=== PATIENT | male | born 1960 | race Caucasian/White ===

== ENCOUNTER 2017-11-22 16:26 | Observation (INO) ==
[2017-11-22] MEDS ORDERED: Aspirin 81 MG TAB.CHEW PO ONE (16:43)
--- NOTE | 2017-11-22 16:46 | Emergency Department Note ---
Disposition Clinical Impression: History of coronary artery disease Chest pain Qualifiers: Chest pain type: unspecified Qualified Code(s): R07.9 - Chest pain, unspecified Disposition: Admitted As Inpatient Condition: Fair Referrals: Davian Nation MD [Primary Care Provider] - Time of Disposition: 17:59 Chest Pain HPI - General Stated Complaint: chest pain/SHAYNA Time Seen by Provider: 11/22/17 16:35 Source: patient Mode of arrival: ambulatory Limitations: no limitations Vital Signs Reviewed: Yes Nursing Notes Reviewed: Yes - History of Present Illness HPI Narrative: 57-year-old male with a history of hypertension and ACS status post stent placement at [facility] approximately a month ago presents for evaluation of chest pain. Patient describes anterior chest pressure on the left side that started approximately 9:30 this morning. Appear to have radiation on the left arm. Notes symptoms have improved since initial presentation. Patient does note the pain was worse with exertion while at work. Resolved with a stent at rest. Patient reports some diaphoresis but no nausea vomiting. Patient also notes some dyspnea mostly with exertion. No fevers or cough. Patient states he did not take his Plavix or aspirin earlier today. Reports that he had one stent placed at [facility] on 10/20/2017 of this year. States that he is willing for admission here with further evaluation. Patient also noted a history of hypertension prior to arrival. States symptoms felt similar to prior HI. - Related Data Home Medications Medication Instructions Recorded Confirmed Aspirin Enteric Coated [Aspirin EC] 81 mg PO DAILY 11/22/17 11/22/17 Atorvastatin Calcium [Lipitor] 80 mg PO HS 11/22/17 11/22/17 Clopidogrel [Plavix] 75 mg PO DAILY 11/22/17 11/22/17 Ergocalciferol (VITAMIN D2) 100,000 unit PO QWEEK 11/22/17 11/22/17 [Vitamin D2] Folic Acid [Folic Acid] 1 mg PO DAILY 11/22/17 11/22/17 Losartan Potassium [Cozaar] 50 mg PO DAILY 11/22/17 11/22/17 Methotrexate [Otrexup] 10 mg PO WE 11/22/17 11/22/17 Metoprolol [Lopressor] 25 mg PO DAILY 11/22/17 11/22/17 predniSONE [PredniSONE] 5 mg PO QID 11/22/17 11/22/17 Allergies Allergy/AdvReac Type Severity Reaction Status Date / Time No Known Allergies Allergy Verified 11/22/17 17:25 All systems ED: reviewed and negative except as stated. Constitutional: Denies: fever Cardiovascular: Reports: chest pain Respiratory: Reports: dyspnea. Denies: cough, sputum production Gastrointestinal: Denies: abdominal pain, nausea, vomiting Physical Exam - General Limitations: no limitations General appearance: alert, in no apparent distress, obese - Head Head exam: atraumatic, normocephalic, normal inspection - Eye Eye exam: Present: normal appearance, EOMI - ENT ENT exam: normal exam, mucous membranes moist - Neck Neck exam: Present: normal inspection - Chest Chest inspection: Present: normal inspection - Respiratory Respiratory exam: Present: normal lung sounds bilaterally. Absent: respiratory distress - Cardiovascular Cardiovascular exam: Present: regular rate, normal rhythm. Absent: systolic murmur - Abdominal Exam Abdominal exam: Present: soft, Non-Tender - Extremities Exam Extremities exam: Present: normal inspection. Absent: pedal edema - Expanded Lower Extremity Exam Neurovascular/Tendon exam: Present: normal capillary refill - Neurological Exam Neurological exam: Present: alert, oriented X3 - Skin Skin exam: Present: warm, dry, intact, normal color Course Course Narrative: Patient ambulated the treatment area. Patient does note worsening chest pain and has a history of cardiac disease. Patient will get repeat cardiopulmonary evaluation EKG, troponin and BNP. Patient will require admission for further evaluation of his ACS. Will attempt to gather records from a [facility] - Reevaluation(s) Reevaluation #1: Patient's pain resolved after 2 nitroglycerin. Time: 17:08 Reevaluation #2: Patient's repeat EKG shows sinus rhythm with left axis deviation. T-wave inversions in the 3 aVF and V1. No ST elevation. Nonspecific T-wave abnormalities. Time: 17:27 Reevaluation #3: Seen and examined. Patient states he is pain-free. Updated on plan of care. Patient will be admitted. Time: 17:48 Vital Signs Temperature 97.8 F 11/22/17 16:41 Pulse Rate 76 11/22/17 16:41 Respiratory Rate 20 11/22/17 16:41 Blood Pressure 133/94 11/22/17 16:41 O2 Sat by Pulse Oximetry 98 11/22/17 16:41 Temperature 97.8 F 11/22/17 16:41 Pulse Rate 74 11/22/17 17:48 Respiratory Rate 17 11/22/17 17:48 Blood Pressure 125/87 11/22/17 17:48 O2 Sat by Pulse Oximetry 97 11/22/17 17:48 Oxygen Delivery Oxygen Delivery Room Air Chest Pain - MDM Narrative Medical decision making narrative: Patient with recent heart attack over a month ago presents for evaluation of chest pain. Attempted to gather those records [facility] however there are not available currently for my evaluation. Patient chest pain was concerning history for ACS. Patient's chest pain resolved after 2 nitroglycerin. Received aspirin. Patient has no ischemic acute changes on her EKG. Patient's been resting comfortably in the ED. Given the patient's history of ACS as well as recent stent placement the patient will be admitted to hospital service for further evaluation and testing. Patient was not anticoagulated during the ED course with a negative troponin and no ischemic EKG changes. Patient's symptoms are not consistent with a pulmonary embolism, pericarditis, tamponade. Records were obtained from [facility] which showed severe stenosis greater than 99% of the mid RCA. Catheter report is placed on the patient's file. EF is 60%. Patient did not take any of his antiplatelet medications earlier today due to noncompliance and not able to get to the pharmacy. - Lab Data Lab results reviewed: Yes I reviewed the patient's lab results. Result diagrams: 11/22/17 16:53 11/22/17 16:53 Lab Results 11/22/17 11/22/17 11/22/17 Range/Units 16:43 16:43 16:53 WBC 6.7 (4.3-11.1) K/mcL RBC 4.20 (4.19-5.50) M/mcL Hgb 12.1 L (12.9-16.9) g/dL Hct 34.9 L (37.5-50.1) % MCV 83.1 (83.0-100.0) fL MCH 28.8 (28.0-33.3) pg MCHC 34.7 (31.6-35.5) g/dL RDW 13.8 (11.5-14.5) % Plt Count 306 (140-400) K/mcL MPV 8.8 L (9.4-12.4) fL Immature Gran % 0.5 (0-4) % Seg Neutrophils % 55.0 % Lymphocytes % 30.0 % Monocytes % 10.4 % Eosinophils % 3.0 % Basophils % 1.1 % Neutrophils # 3.7 (1.6-8.9) K/mcL Lymphocytes # 2.0 (0.6-4.6) K/mcL Monocytes # 0.7 (0.0-1.3) K/mcL Eosinophils # 0.2 (0.0-0.6) K/mcL Basophils # 0.1 (0.0-0.2) K/mcL PT 12.7 H (9.4-12.1) Seconds INR 1.1 Sodium (136-145) mEq/L Potassium (3.5-5.1) mEq/L Chloride (98-107) mEq/L Carbon Dioxide (23-29) mEq/L BUN (6-20) mg/dL Creatinine (0.70-1.30) mg/dL Est GFR ( Amer) (> 60) Est GFR (Non-Af Amer) (> 60) BUN/Creatinine Ratio (6-26) Glucose (70-105) mg/dL Calculated Osmolality (280-300) Calcium (8.6-10.3) mg/dL Troponin I (< 0.04) ng/mL B-Natriuretic Peptide 19 (Less than 100) pg/mL 11/22/17 Range/Units 16:53 WBC (4.3-11.1) K/mcL RBC (4.19-5.50) M/mcL Hgb (12.9-16.9) g/dL Hct (37.5-50.1) % MCV (83.0-100.0) fL MCH (28.0-33.3) pg MCHC (31.6-35.5) g/dL RDW (11.5-14.5) % Plt Count (140-400) K/mcL MPV (9.4-12.4) fL Immature Gran % (0-4) % Seg Neutrophils % % Lymphocytes % % Monocytes % % Eosinophils % % Basophils % % Neutrophils # (1.6-8.9) K/mcL Lymphocytes # (0.6-4.6) K/mcL Monocytes # (0.0-1.3) K/mcL Eosinophils # (0.0-0.6) K/mcL Basophils # (0.0-0.2) K/mcL PT (9.4-12.1) Seconds INR Sodium 139 (136-145) mEq/L Potassium 3.8 (3.5-5.1) mEq/L Chloride 108 H (98-107) mEq/L Carbon Dioxide 23 (23-29) mEq/L BUN 10 (6-20) mg/dL Creatinine 0.93 (0.70-1.30) mg/dL Est GFR ( Amer) > 60 (> 60) Est GFR (Non-Af Amer) > 60 (> 60) BUN/Creatinine Ratio 11 (6-26) Glucose 91 (70-105) mg/dL Calculated Osmolality 287 (280-300) Calcium 8.9 (8.6-10.3) mg/dL Troponin I < 0.03 (< 0.04) ng/mL B-Natriuretic Peptide (Less than 100) pg/mL - Radiology Data Radiology results reviewed: Yes I reviewed the patient's radiology results. Chest X-Ray 11/22/17 16:43 IMPRESSION: No acute findings. D/ / Jc Warren MD / Jc Warren MD Interpreting Provider: Jc Warren MD - EKG Data EKG attestation: Yes I reviewed and interpreted this EKG. EKG shows normal: sinus rhythm Rate: normal Rhythm: NSR [place]/QRS: normal T wave inversions noted in: III, aVF, v1 Interpretation: no acute changes, nonspecific ST-T wave changes Heart Score - Score History: Highly Suspicious EKG: Non Specific repolarisation Disturbance Age: 45-65 Risk Factors: Equal/Greater than 3 risk factor or history of atherosclerotic disease Troponin: Less than normal limit HEART Score Total: 6 S.B.A.R. - S.B.A.R. Situation: Demographics Background: Presenting Complaint Assessment: Vital Signs, Course and respsone to treatment, Patient/Family Expectation Recommendation: Barrier(s) to disposition, Recommendation based on pending studies, treatments, or consults S.B.A.R. Report Given to: Dr. Josh Reaves Repor Time: 17:59
[2017-11-22] MEDS: Nitroglycerin 0.4 MG TAB.SUBL SL ONE ×2 (16:53→17:03)
[2017-11-22 17:07] LABS: Basophils # 0.1 K/mcL (0.0-0.2); Basophils % 1.1 %; Eosinophils # 0.2 K/mcL (0.0-0.6); Hematocrit 34.9 % (37.5-50.1); Hemoglobin 12.1 g/dL (12.9-16.9); Immature Granulocytes % 0.5 % (0-4); Mean Corpuscular HGB Conc 34.7 g/dL (31.6-35.5); Mean Corpuscular Hemoglobin 28.8 pg (28.0-33.3); Mean Corpuscular Volume 83.1 fL (83.0-100.0); Mean Platelet Volume 8.8 fL (9.4-12.4); Monocytes # 0.7 K/mcL (0.0-1.3); Monocytes % 10.4 %; Neutrophils # 3.7 K/mcL (1.6-8.9); Platelet Count 306 K/mcL (140-400); Red Cell Distribution Width 13.8 % (11.5-14.5)
[2017-11-22 17:15] LABS: INR 1.1; Prothrombin Time 12.7 Seconds (9.4-12.1)
[2017-11-22 17:29] LABS: BUN/Creatinine Ratio 11 (6-26); Blood Urea Nitrogen 10 mg/dL (6-20); Calcium 8.9 mg/dL (8.6-10.3); Carbon Dioxide 23 mEq/L (23-29); Chloride 108 mEq/L (98-107); Glucose 91 mg/dL (70-105); Osmolality,Calculated 287 (280-300); Potassium 3.8 mEq/L (3.5-5.1); Sodium 139 mEq/L (136-145); Troponin I < 0.03 ng/mL (< 0.04); eGFR For Non-African Americans > 60 (> 60)
--- NOTE | 2017-11-22 17:41 | Emergency Department Note ---
Disposition Clinical Impression: Chest pain Qualifiers: Chest pain type: unspecified Qualified Code(s): R07.9 - Chest pain, unspecified Disposition: Still a Patient Referrals: Davian Nation MD [Primary Care Provider] - General Adult HPI - General Chief complaint: ED Chest Pain Stated complaint: chest pain/SHAYNA Time Seen by Provider: 11/22/17 16:35 Source: patient Mode of arrival: ambulatory Limitations: no limitations - History of Present Illness Pain Scale: 2 - Related Data Home Medications Medication Instructions Recorded Confirmed Aspirin Enteric Coated [Aspirin EC] 81 mg PO DAILY 11/22/17 11/22/17 Atorvastatin Calcium [Lipitor] 80 mg PO HS 11/22/17 11/22/17 Clopidogrel [Plavix] 75 mg PO DAILY 11/22/17 11/22/17 Ergocalciferol (VITAMIN D2) 100,000 unit PO QWEEK 11/22/17 11/22/17 [Vitamin D2] Folic Acid [Folic Acid] 1 mg PO DAILY 11/22/17 11/22/17 Losartan Potassium [Cozaar] 50 mg PO DAILY 11/22/17 11/22/17 Methotrexate [Otrexup] 10 mg PO WE 11/22/17 11/22/17 Metoprolol [Lopressor] 25 mg PO DAILY 11/22/17 11/22/17 predniSONE [PredniSONE] 5 mg PO QID 11/22/17 11/22/17 Allergies Allergy/AdvReac Type Severity Reaction Status Date / Time No Known Allergies Allergy Verified 11/22/17 17:25 Constitutional: Denies: fever Cardiovascular: Reports: chest pain Respiratory: Reports: dyspnea. Denies: cough, sputum production Gastrointestinal: Denies: abdominal pain, nausea, vomiting Past Medical History - Past Medical History Medical history: Reports: myocardial infarction Psychiatric history: Reports: no psych history - Social History Smoking Status: Never smoker Smokeless Tobacco Status: No Alcohol use: Reports: none Drug use: Reports: none Physical Exam - General Limitations: no limitations General appearance: alert, in no apparent distress, obese Course - Reevaluation(s) Reevaluation #1: Attestation note I examined this patient and my medical decision-making was reviewed with the emergency medicine resident. I agree with the documented findings, disposition and treatment plan as described except to the extent set forth below. Patient seen with emergency medicine resident Dr. Patricia Whipple, Please see a copy of his note for details of the H&P, ED evaluation, management and disposition. I have independently evaluated the patient and confirmed appropriate portions of the history and physical exam. Briefly: 49-year-old male history of prior MIs presents with chest pain reseat rule out resolved with 2 nitroglycerin. EKG shows nonspecific changes but no negative troponin he is moderate risk patient will be admitted for chest pain rule out acute coronary syndrome. Provided 35 minutes critical care service for this patient. Time: 17:40 Vital Signs Temperature 97.8 F 11/22/17 16:41 Pulse Rate 76 11/22/17 16:41 Respiratory Rate 20 11/22/17 16:41 Blood Pressure 133/94 11/22/17 16:41 O2 Sat by Pulse Oximetry 98 11/22/17 16:41 Temperature 97.8 F 11/22/17 16:41 Pulse Rate 74 11/22/17 17:22 Respiratory Rate 14 11/22/17 17:22 Blood Pressure 112/89 11/22/17 17:22 O2 Sat by Pulse Oximetry 97 11/22/17 17:22 Oxygen Delivery Oxygen Delivery Room Air Medical Decision Making - Lab Data Result diagrams: 11/22/17 16:53 11/22/17 16:53 Lab Results 11/22/17 11/22/17 11/22/17 Range/Units 16:43 16:43 16:53 WBC 6.7 (4.3-11.1) K/mcL RBC 4.20 (4.19-5.50) M/mcL Hgb 12.1 L (12.9-16.9) g/dL Hct 34.9 L (37.5-50.1) % MCV 83.1 (83.0-100.0) fL MCH 28.8 (28.0-33.3) pg MCHC 34.7 (31.6-35.5) g/dL RDW 13.8 (11.5-14.5) % Plt Count 306 (140-400) K/mcL MPV 8.8 L (9.4-12.4) fL Immature Gran % 0.5 (0-4) % Seg Neutrophils % 55.0 % Lymphocytes % 30.0 % Monocytes % 10.4 % Eosinophils % 3.0 % Basophils % 1.1 % Neutrophils # 3.7 (1.6-8.9) K/mcL Lymphocytes # 2.0 (0.6-4.6) K/mcL Monocytes # 0.7 (0.0-1.3) K/mcL Eosinophils # 0.2 (0.0-0.6) K/mcL Basophils # 0.1 (0.0-0.2) K/mcL PT 12.7 H (9.4-12.1) Seconds INR 1.1 Sodium (136-145) mEq/L Potassium (3.5-5.1) mEq/L Chloride (98-107) mEq/L Carbon Dioxide (23-29) mEq/L BUN (6-20) mg/dL Creatinine (0.70-1.30) mg/dL Est GFR ( Amer) (> 60) Est GFR (Non-Af Amer) (> 60) BUN/Creatinine Ratio (6-26) Glucose (70-105) mg/dL Calculated Osmolality (280-300) Calcium (8.6-10.3) mg/dL Troponin I (< 0.04) ng/mL B-Natriuretic Peptide 19 (Less than 100) pg/mL 11/22/17 Range/Units 16:53 WBC (4.3-11.1) K/mcL RBC (4.19-5.50) M/mcL Hgb (12.9-16.9) g/dL Hct (37.5-50.1) % MCV (83.0-100.0) fL MCH (28.0-33.3) pg MCHC (31.6-35.5) g/dL RDW (11.5-14.5) % Plt Count (140-400) K/mcL MPV (9.4-12.4) fL Immature Gran % (0-4) % Seg Neutrophils % % Lymphocytes % % Monocytes % % Eosinophils % % Basophils % % Neutrophils # (1.6-8.9) K/mcL Lymphocytes # (0.6-4.6) K/mcL Monocytes # (0.0-1.3) K/mcL Eosinophils # (0.0-0.6) K/mcL Basophils # (0.0-0.2) K/mcL PT (9.4-12.1) Seconds INR Sodium 139 (136-145) mEq/L Potassium 3.8 (3.5-5.1) mEq/L Chloride 108 H (98-107) mEq/L Carbon Dioxide 23 (23-29) mEq/L BUN 10 (6-20) mg/dL Creatinine 0.93 (0.70-1.30) mg/dL Est GFR ( Amer) > 60 (> 60) Est GFR (Non-Af Amer) > 60 (> 60) BUN/Creatinine Ratio 11 (6-26) Glucose 91 (70-105) mg/dL Calculated Osmolality 287 (280-300) Calcium 8.9 (8.6-10.3) mg/dL Troponin I < 0.03 (< 0.04) ng/mL B-Natriuretic Peptide (Less than 100) pg/mL
[2017-11-22] MEDS ORDERED: Nitroglycerin 0.4 MG TAB.SUBL SL PRN (19:45)
[2017-11-22] MEDS ORDERED: Naloxone 0.4 MG/ML INJ IVP PRN (21:00)
[2017-11-22] MEDS ORDERED: Acetaminophen 325 MG TABLET PO PRN (21:00)
[2017-11-22] MEDS ORDERED: *HR* OxyCODONE Immed Rel 5 MG TABLET PO PRN (21:00)
[2017-11-22] MEDS ORDERED: *HR* HYDROcodone/Acet 5/325 mg TABLET PO PRN (21:00)
--- NOTE | 2017-11-22 21:29 | Internal Med History&Physical ---
Date of Encounter: 11/22/17 Time of Encounter: 20:00 Internal Medicine - H&P: HPI Chief complaint: Chest pain History of present illness: Mr. Wakefield is a 57 year old male with past mental history of recent CAD status post PCI in October 2017 at [place] presented to the ED with 12 hour history of chest pain. 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 Pressure-like, substernal, radiates to left arm, no aggravating factor but relief with 2 doses of nitroglycerin. Denies nausea or vomiting, diaphoresis, orthopnea, PND, lower leg swelling, fevers/chills, or abdominal pain. No shortness of breath, cough, sputum production, or dysuria. No joint pain or rash. Claims compliance to his dual antiplatelet regime. In the ED, he was afebrile and hemodynamically stable. Labs were unremarkable with normal troponins and BNP. EKG normal sinus rhythm without ST elevations. Chest x-ray within normal limits. He was loaded with aspirin and admitted for further management. Past Med Surg Social Fam HX - Past Medical History Attestation: Yes The following information was validated with the patient. Medical history: myocardial infarction Additional medical history: PCI 10/2017 Psychiatric history: no psych history - Social History Smoking Status: Never smoker Smokeless Tobacco Status: No Alcohol use: none Drug use: none - Family History Mother Living Status: Cause of : lung ca Father Living Status: Cause of : age Internal Medicine - H&P: Meds Aspirin Enteric Coated [Aspirin EC] 81 mg PO DAILY 11/22/17 [History] Atorvastatin Calcium [Lipitor] 80 mg PO HS 11/22/17 [History] Clopidogrel [Plavix] 75 mg PO DAILY 11/22/17 [History] Ergocalciferol (VITAMIN D2) [Vitamin D2] 100,000 unit PO QWEEK 11/22/17 [History ] Folic Acid [Folic Acid] 1 mg PO DAILY 11/22/17 [History] Losartan Potassium [Cozaar] 50 mg PO DAILY 11/22/17 [History] Methotrexate [Otrexup] 10 mg PO WE 11/22/17 [History] Metoprolol [Lopressor] 25 mg PO DAILY 11/22/17 [History] predniSONE [PredniSONE] 5 mg PO QID 11/22/17 [History] 3 Allergy/AdvReac Type Severity Reaction Status Date / Time No Known Allergies Allergy Verified 11/22/17 17:25 All Systems PM: A 10-system review of systems was performed and is negative for pertinent findings except as documented above in the HPI. - Constitutional Vitals: Temp Pulse Resp BP Pulse Ox 98.4 F 83 17 152/96 96 11/22/17 19:17 11/22/17 19:17 11/22/17 19:17 11/22/17 19:17 11/22/17 19:17 Exam: General: Alert and oriented HEENT:EOM, pupils equal, round, and reactive. Cardiovascular:Normal S1 & S2, no murmurs or gallops. No JVD. Pulse regular. No chest wall tenderness Lungs:Normal breath sounds, no wheezes or crackles. Abdomen:Soft, non-tender, no rigidity. Extremities:No deformity, no edema or tenderness, no joint swelling. Neurological:Normal cognition and motor skills. Skin:Normal color, no rash, no lesions. Pulses:Carotid and radial pulses normal +2. Rest of the physical exam is non-contributory Internal Med - H&P Results - Labs CBC & Chem 7: 11/22/17 16:53 11/22/17 16:53 Labs: Cardiac Enzymes 11/22/17 Range/Units 20:10 Troponin I < 0.03 (< 0.04) ng/mL - Assessment and plan (1) Chest pain Current Visit: Yes Status: Acute Assessment and plan: Presented with typical chest pain with recent PCI at [facility] Troponin -ve x 2, EKG no ST elevation Repeat troponin tomorrow morning Nitro PRN, will consider nitro gtt if pain is refractory to frequent sublingual nitro continue DAPT, bb, statin cardiology consult for further testing ?stress vs. cath Qualifiers: Chest pain type: unspecified Qualified Code(s): R07.9 - Chest pain, unspecified (2) History of coronary artery disease Current Visit: Yes Status: Chronic Assessment and plan: Continue aspirin, Plavix, statin, beta elisa No A1c or lipid panel on file, will send them tomorrow AM lab (3) Rheumatoid arthritis Current Visit: No Status: Acute Assessment and plan: On methotrexate, steroid and folic acid. Continue Qualifiers: Rheumatoid arthritis location: hand Rheumatoid factor presence: unspecified presence Laterality: unspecified laterality Qualified Code(s): M06.9 - Rheumatoid arthritis, unspecified (4) DVT prophylaxis Current Visit: Yes Status: Acute Assessment and plan: Subcutaneous heparin - Time Spent With Patient Total time spent is greater than 50% in coordination of care (as documented) at patient's floor/unit and/or counseling patient:
[2017-11-23 04:20] LABS: Basophils # 0.1 K/mcL (0.0-0.2); Basophils % 0.9 %; Eosinophils # 0.2 K/mcL (0.0-0.6); Eosinophils % 3.8 %; Hematocrit 33.9 % (37.5-50.1); Hemoglobin 11.5 g/dL (12.9-16.9); Immature Granulocytes % 0.2 % (0-4); Lymphocytes # 2.3 K/mcL (0.6-4.6); Lymphocytes % 38.6 %; Mean Corpuscular HGB Conc 33.9 g/dL (31.6-35.5); Mean Corpuscular Hemoglobin 28.3 pg (28.0-33.3); Mean Corpuscular Volume 83.5 fL (83.0-100.0); Mean Platelet Volume 9.3 fL (9.4-12.4); Monocytes # 0.6 K/mcL (0.0-1.3); Monocytes % 9.9 %; Neutrophils # 2.7 K/mcL (1.6-8.9); Platelet Count 303 K/mcL (140-400); Red Blood Count 4.06 M/mcL (4.19-5.50); Red Cell Distribution Width 13.9 % (11.5-14.5); Segmented Neutrophils % 46.6 %
[2017-11-23 04:36] LABS: Troponin I < 0.03 ng/mL (< 0.04)
[2017-11-23 04:48] LABS: BUN/Creatinine Ratio 10 (6-26); Blood Urea Nitrogen 10 mg/dL (6-20); Calcium 8.5 mg/dL (8.6-10.3); Carbon Dioxide 24 mEq/L (23-29); Chloride 108 mEq/L (98-107); Chol/HDL Ratio 4.4 (0-4.9); Cholesterol 124 mg/dL (< 200); Glucose 123 mg/dL (70-105); HDL Cholesterol 28 mg/dL (40-59); LDL Cholesterol,Calculated 65 mg/dL (0-99); Osmolality,Calculated 290 (280-300); Potassium 3.9 mEq/L (3.5-5.1); Sodium 140 mEq/L (136-145); Triglycerides 156 mg/dL (< 150); eGFR For Non-African Americans > 60 (> 60)
[2017-11-23] MEDS ORDERED: *HR* Heparin 5,000 UNIT/ML VIAL SQ SCH (06:00)
[2017-11-23 06:51] LABS: Estimated Average Glucose 128 mg/dl; Hemoglobin A1C 6.1 %
[2017-11-23 07:04] VITALS: BP 151/84
[2017-11-23] MEDS ORDERED: predniSONE 5 MG TABLET PO SCH (09:00)
[2017-11-23] MEDS ORDERED: Folic Acid 1 MG TABLET PO SCH (09:00)
[2017-11-23] MEDS ORDERED: Aspirin Enteric Coated 81 MG Tablet PO SCH (09:00)
--- NOTE | 2017-11-23 09:04 | Cardiology Consult Note ---
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 He had negative troponins x2 Plan: -ECHO pending -decrease Losartan to 25mg PO daily, add Imdur 30mg PO daily -currently NPO in case of intervention -Continue home meds - on Lipitor 80mg PO daily, ASA 81mg PO daily, Plavix 75mg PO daily, Cozaar 50mg PO daily (switching to 25mg), Lopressor 25mg PO daily Qualifiers: Chest pain type: unspecified Qualified Code(s): R07.9 - Chest pain, unspecified (2) Hypertension Status: Chronic Pt BP this morning 151/84 -he is on Lopressor 25mg PO and Cozaar 25mg PO Plan: -continue home meds -add hydralazine 10mg IVP q6hr if systolic BP >160 Qualifiers: Hypertension type: essential hypertension Qualified Code(s): I10 - Essential (primary) hypertension (3) Hyperlipidemia Status: Chronic TG 156, cholesterol 124, LDL 65, VLDL 31, HDL 28 -BMI 45.1 Plan: -encourage low fat, low cholesterol heart healthy diet -continue Lipitor 80mg PO daily Qualifiers: Hyperlipidemia type: unspecified Qualified Code(s): E78.5 - Hyperlipidemia , unspecified (4) History of coronary artery disease Status: Chronic Pt is s/p PCI -[facility] on October 20 -stented RCA which showed 99% occlusion -LCX and LAD had 50% occlusion Plan: -continue DAPT as per plan above -ECHO pending -decrease Cozaar to 25mg and add Imdur 25mg PO daily Discussion w patient/family: The assessment and plan as outlined above was discussed with the patient and/or family members who expressed understanding and agreement. All questions were answered. Thank you for involving us in the care of your patient. Please call with any questions. History of Present Illness Consult date: 11/22/16 Requesting physician: Johnny Heredia Consult reason: Typical chest pain, recent PCI at [facility] Chief complaint: "chest pain" History of present illness: Mr. Wakefield is a 57 year old male with a PMH of CAD, HDL, Rheumatoid Arthritis, and HTN who presented to [facility] yesterday after onset of chest pain. 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 He had negative troponins x2 -ECHO was ordered, pending At this time, the pt has very minimal chest pain rated as a 2/10, there is no radiation or SOB -he denies any N/V at this time -he has c/o right sided LE edema, which gets better with Lasix use Fluids - none Electrolytes - all WNL Nutrition - currently NPO GI prophylaxis - not indicated DVT prophylaxis - 5000U SQ heparin Past Med Surg Social Fam HX - Past Medical History Medical history: myocardial infarction Additional medical history: PCI 10/2017 Psychiatric history: no psych history - Social History Smoking Status: Never smoker Smokeless Tobacco Status: No Alcohol use: none Drug use: none - Family History Mother Living Status: Cause of : lung ca Father Living Status: Cause of : age Medications and Allergies Aspirin Enteric Coated [Aspirin EC] 81 mg PO DAILY 11/22/17 [History] Atorvastatin Calcium [Lipitor] 80 mg PO HS 11/22/17 [History] Clopidogrel [Plavix] 75 mg PO DAILY 11/22/17 [History] Ergocalciferol (VITAMIN D2) [Vitamin D2] 100,000 unit PO QWEEK 11/22/17 [History ] Folic Acid 1 mg PO DAILY 11/22/17 [History] Methotrexate [Otrexup] 10 mg PO WE 11/22/17 [History] Metoprolol [Lopressor] 25 mg PO DAILY 11/22/17 [History] predniSONE [PredniSONE] 5 mg PO QID 11/22/17 [History] Acetaminophen [Tylenol] 650 mg PO Q6HR PRN tablet 11/23/17 [Rx] Isosorbide MONOnitrate (24 HR) [Imdur] 30 mg PO DAILY 30 Days #30 tab.er.24h 12/03 [Rx] Losartan [Cozaar] 25 mg PO DAILY tablet 11/23/17 [Rx] Nitroglycerin 0.4 mg SL Q5MIN PRN tab.subl 11/23/17 [Rx] 3 Allergy/AdvReac Type Severity Reaction Status Date / Time No Known Allergies Allergy Verified 11/22/17 17:25 All Systems Review: The remainder of the systems were reviewed and are negative - Constitutional Constitutional: weakness, no fever(s), no lethargy - Cardiovascular Cardiovascular: chest pain at rest, chest pain with exertion, radiating jaw, neck or arm pain, leg edema, no orthopnea, no palpitations, no paroxysmal nocturnal dyspnea - Respiratory Respiratory: dyspnea, no wheezing - Gastrointestinal Gastrointestinal: no abdominal pain, no diarrhea, no nausea - Genitourinary Genitourinary: no dysuria, no hematuria - Musculoskeletal Musculoskeletal: arthralgias - Integumentary Integumentary: no erythema - Neurological Neurological: no numbness, no tingling Physical Examination Vital Signs, Last 4 Hours Temp Pulse Resp BP Pulse Ox 11/23/17 07:04 97.5 F L 61 20 151/84 96 General: Conversant, No Apparent Distress HEENT: Atraumatic, Normocephaly Neck: No JVD Cardiac: Reg Rate and Rhythm, Normal S1 and S2, No Murmur Lungs: Normal Breath Sounds, No Wheeze, Rales, Rhonchi Neuro: Alert and responsive, No focal deficits noted Abdomen: Soft, Non-Tender Skin: No rashes noted on visualized skin Extremities: Other (1+ pitting edema R LE, B/L have loss of hair over the anterior shins) Results 11/23/17 03:31 11/23/17 03:31 Lab Results 11/22/17 11/23/17 11/23/17 20:10 03:31 03:31 WBC 5.9 Hgb 11.5 L Hct 33.9 L Plt Count 303 Sodium 140 Potassium 3.9 Chloride 108 H Carbon Dioxide 24 BUN 10 Creatinine 0.96 Glucose 123 H Calcium 8.5 L Magnesium 2.0 Troponin I < 0.03 < 0.03 Consult Discharge Plan - Plan Instructions: Isosorbide Mononitrate (By mouth), Chest Pain (DC), Chest Pain ( GEN) Referrals: [facility] [Provider Group] - 12/14/17 9:30 am Davian Nation MD [Primary Care Provider] - 12/01/17 2:00 pm Prescriptions: Isosorbide MONOnitrate (24 HR) [Imdur] 30 mg PO DAILY 30 Days #30 tab.er.24h <Cary Cardoza - Last Filed: 11/23/17 14:15> Date of Encounter: 11/23/17 - Attending Attestation I examined this patient and my medical decision-making was reviewed with the Resident Physician. I agree with the documented findings, disposition and treatment plan as described except to the extent set forth below. Mr. Wakefield presents to [facility] with chest pain. Recent LHC with PCI at [facility] on October 20 2017 (99% RCA stenosis, residual moderate disease). Denied missing any doses of DAPT except yesterday evening. Reports starting to have dull chest "pressure-pain" on Tuesday which worsened on Tuesday prompting admission. He reports persistent discomfort without resolution since Tuesday. Reports that it is uncomfortable when you press in the area and admits to pain with probe pressure during Echo examination. Patient seen in the Echo lab during exam. Appeared in NAD, AAOx3. VS reviewed - afebrile, oxygenating on RA, HR 50-60's, SBP 140-150's Labs reviewed demonstrating troponins negative x3, normal renal function, Hgb borderline, normal plt count ECGs reviewed - NSR, nonspecific ST-T findings, no acute ischemic changes Exam - normal rate and rhythm, no murmur, normal breath sounds, mild BLE edema Impression/Plan: 1. Chest pain: Atypical chest pain made worse upon palpation. Troponins negative x3, ECG without acute ischemic findings. Echo demonstrates normal LVEF without wall motion abnormalities. Symptoms do not represent ACS. Patient can follow up with outpatient PCP. 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 2. CAD: Recent PCI. Continue DAPT uninterrupted, statin, BB. Recommend Cardiac Rehab. 3. HTN: Uncontrolled with moderate diastolic dysfunction on echo and LE edema. May benefit from diuretic. Can consider as outpatient. Case personally discussed with Hospitalist. Will sign off. Assessment and Plan Discussion w patient/family: The assessment and plan as outlined above was discussed with the patient and/or family members who expressed understanding and agreement. All questions were answered. Thank you for involving us in the care of your patient. Please call with any questions. History of Present Illness History of present illness: Mr. Wakefield is a 57 year old male All Systems Review: The remainder of the systems were reviewed and are negative Results 11/23/17 03:31 11/23/17 03:31 Lab Results 11/22/17 11/23/17 11/23/17 20:10 03:31 03:31 WBC 5.9 Hgb 11.5 L Hct 33.9 L Plt Count 303 Sodium 140 Potassium 3.9 Chloride 108 H Carbon Dioxide 24 BUN 10 Creatinine 0.96 Glucose 123 H Calcium 8.5 L Magnesium 2.0 Troponin I < 0.03 < 0.03
--- NOTE | 2017-11-23 12:28 | Discharge Summary ---
- NOTES TO OUTPATIENT PROVIDER Notes to Outpatient Provider: Patient is a follow-up with cardiology. He had a recent stenting in October for 99% RCA stenosis and he came in with chest pain. He has been seen by cardiology and recommended outpatient follow-up and a stress test if needed. His workup for acute coronary syndrome in house has been normal. Orders not resulted at time of discharge: Pending orders 11/23/17 10:36 Cardiac Rehab Phase 2 [CRS] Routine Date of Encounter: 11/23/17 Time of Encounter: 12:26 - Discharge Diagnosis (1) Chest pain Priority: Primary Status: Acute Qualifiers: Chest pain type: unspecified Qualified Code(s): R07.9 - Chest pain, unspecified (2) History of coronary artery disease Priority: Secondary Status: Chronic (3) DVT prophylaxis Priority: Secondary Status: Acute (4) Rheumatoid arthritis Priority: Secondary Status: Acute Qualifiers: Rheumatoid arthritis location: hand Rheumatoid factor presence: unspecified presence Laterality: unspecified laterality Qualified Code(s): M06.9 - Rheumatoid arthritis, unspecified Hospital course: Mr. Wakefield is a 57 year old male with a recent history of PCI at [facility] in October-he was found to have 99% RCA stenosis and had a stent put in. Continues to be on dual antibiotic therapy and presented himself to the ER with chest pain that started at work. He underwent serial cardiac enzymes which were negative. Chest x-ray was negative for acute coronary pulmonary process and EKG did not show any ST elevation or depression. He was given an aspirin in the emergency room and also had a nitroglycerin which improved his pain. However the pain did come back and is now graded as 2/10 in severity. He was seen by cardiology and underwent an echo which was normal with ejection fraction 60-65% and no wall motion abnormalities. 3 sets of cardiac enzymes are negative and his telemetry was also negative. He did have slightly higher blood pressure in the 170s on arrival but did respond to addition of an Imdur and decrease of osartan dosing. He has been cleared by cardiology for discharge and I have personally discussed these findings with Dr petersen. They are recommending outpatient follow-up with cardiology which the patient wants to transfer his care to [place] and will be trying to make an appointment for him prior to discharge. I will also given him a prescription for Imdur and he can follow-up with his primary within a week to 2 weeks time. Discharge discussed with: patient, family - Time Spent with Patient Total time spent providing and/or coordinating discharge services: Greater than 30 minutes - Discharge Medications Prescriptions: Isosorbide MONOnitrate (24 HR) [Imdur] 30 mg PO DAILY 30 Days #30 tab.er.24h Home Medications: Aspirin Enteric Coated [Aspirin EC] 81 mg PO DAILY 11/22/17 [History] Atorvastatin Calcium [Lipitor] 80 mg PO HS 11/22/17 [History] Clopidogrel [Plavix] 75 mg PO DAILY 11/22/17 [History] Ergocalciferol (VITAMIN D2) [Vitamin D2] 100,000 unit PO QWEEK 11/22/17 [History ] Folic Acid 1 mg PO DAILY 11/22/17 [History] Methotrexate [Otrexup] 10 mg PO WE 11/22/17 [History] Metoprolol [Lopressor] 25 mg PO DAILY 11/22/17 [History] predniSONE [PredniSONE] 5 mg PO QID 11/22/17 [History] Acetaminophen [Tylenol] 650 mg PO Q6HR PRN tablet 11/23/17 [Rx] Isosorbide MONOnitrate (24 HR) [Imdur] 30 mg PO DAILY 30 Days #30 tab.er.24h 12/03 [Rx] Losartan [Cozaar] 25 mg PO DAILY tablet 11/23/17 [Rx] Nitroglycerin 0.4 mg SL Q5MIN PRN tab.subl 11/23/17 [Rx] Allergies/Adverse Reactions: 3 Allergy/AdvReac Type Severity Reaction Status Date / Time No Known Allergies Allergy Verified 11/22/17 17:25 Date of admission: 11/22/17 18:16 Primary care physician: Davian Nation MD Consults: 11/22/17 21:01 Consult to Cardiology [CONS] Routine Comment: Consulting Provider: [facility] Reason for Consult: typical chest pain, recent PCI at [facility] in 10/2017. Call Completed: No - Constitutional Vitals: Temp Pulse Resp BP Pulse Ox 97.5 F L 61 20 151/84 96 11/23/17 07:04 11/23/17 07:04 11/23/17 07:04 11/23/17 07:04 11/23/17 07:04 Exam: GENERAL: Alert, moderate distress, cooperative EYES: PERRLA, EOMI EARS: External ears normal, canals clear OROPHARYNX: Lips, mucosa, and tongue normal. Teeth and gums normal. Oropharynx normal. NECK: No jugulovenous distention, No carotid bruits, Carotid pulse normal contour, Supple LUNGS: Lungs clear to auscultation, Good diaphragmatic excursion CARDIAC: Normal S1 and S2; no rubs, murmurs, or gallops ABDOMEN: Abdomen soft, non-tender, BS normal, No masses or organomegaly EXTREMITIES: Extremities normal, no deformities, edema, clubbing or skin discoloration. Good capillary refill., No ulcers NEURO: Gait normal. Reflexes normal and symmetric. Sensation grossly intact, Cranial nerves II-XII intact PULSES: 2+ radial, 2+ carotid Rest of the exam is non contributory - Patient Status Disposition: Home, Self-Care Condition: Fair Functional capacity at discharge: independent ambulation Overall status at discharge: patient is back to baseline - Discharge Instructions Instructions: Isosorbide Mononitrate (By mouth), Chest Pain (DC), Chest Pain ( GEN) Follow Up With: [facility] [Provider Group] Davian Nation MD [Primary Care Provider] - - Diet and Activity Activity: increase activity as tolerated Diet: advance to your usual diet
--- NOTE | 2017-11-23 16:57 | Electrocardiograph Report ---
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
--- NOTE | 2017-11-23 16:59 | Electrocardiograph Report ---
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
--- NOTE | 2017-11-23 17:08 | Electrocardiograph Report ---
[address] [place] [address] Test Date: 2017-11-22 Pat Name: Ranjit Wakefield Department: 113 Room: 3B Gender: Meters Superintendent: : 1960 Requested By: Yobany Whipple Order Number: [id number] Reading MD: Chris Lomeli Measurements Intervals [place] Rate: 60 P: 25 VA: 137 QRS: -16 QRSD: 93 T: -18 QT: 430 QTc: 430 Interpretive Statements SINUS RHYTHM INFERIOR T WAVE CHANGES, CONSIDER ISCHEMIA Electronically Signed On 11-23-2017 17:06:38 EDT by Chris Lomeli
[2017-11-23] MEDS ORDERED: *HR* Methotrexate 2.5 MG TABLET PO SCH (21:00)
[2017-11-24] MEDS ORDERED: Isosorbide MONOnitrate (24 HR) 30 MG TAB.ER.24H PO SCH (10:15)
== END 2017-11-23 13:08 | disposition home or self-care (01) ==
LOC: EMEROO 16:26 → 3BNU 16:26
PROVIDERS: ADMIT Internal Medicine; ATTEND Internal Medicine

== ENCOUNTER 2018-12-19 18:39 | Inpatient (IN) ==
--- NOTE | 2018-12-19 19:13 | Emergency Department Note ---
Disposition Clinical Impression: Overdose Qualifiers: Encounter type: initial encounter Injury intent: intentional self-harm Qualified Code(s): T50.902A - Poisoning by unspecified drugs, medicaments and biological substances, intentional self-harm, initial encounter Disposition: Still a Patient Condition: Good Forms: ED Satisfaction Letter Time of Disposition: 20:41 Psych HPI - General Chief Complaint: ED Psychiatric Symptoms Stated Complaint: possibly took to many bp pills Time Seen by Provider: 12/19/18 18:47 Source: patient, EMS Mode of arrival: EMS Nursing Notes Reviewed: Yes Vital Signs Reviewed: Yes - History of Present Illness HPI Narrative: Patient is a 58-year-old male with past medical history of myocardial infarction, CAD, hypertension, hyperlipidemia who presented today after taking multiple doses of his blood pressure pills. He states that he has not been taking any of his medications due to financial issues for an unknown amount of time. He admits to taking 8-10 his amlodipine 5 mg and 5 pills of his metoprolol 50 mg at around 1700 this evening. The patient states that he took these pills because he wanted a break from life. He denies homicidal ideation, visual hallucinations, and auditory hallucinations. The patient admits to recent stressors with Social Security issues and an upcoming anniversary with an ex . Patient denies chest pain, shortness of breath, fever, chills, abdominal pain, nausea, diarrhea, nausea, vomiting, headache, one-sided weakness, numbness, tingling, swelling. He is currently denying suicidal ideation today. He states that he did not take this medication in a suicide attempt it was for relief of his headache as well as hypertension. - Related Data Previous Rx's Medication Instructions Recorded Aspirin Enteric Coated [Aspirin EC] 81 mg PO DAILY #30 tablet. 10/06/18 Atorvastatin Calcium 80 mg PO HS #30 tablet 10/06/18 Clopidogrel [Plavix] 75 mg PO DAILY #30 tablet 10/06/18 Isosorbide MONOnitrate (24 HR) 30 mg PO DAILY 30 Days #30 10/06/18 [Imdur] tab.er.24h Losartan/Hydrochlorothiazide 1 each PO DAILY #30 tablet 10/06/18 [Losartan-Hctz 100-12.5 mg Tab] Metoprolol [Lopressor] 12.5 mg PO BID #30 tablet 10/06/18 Omeprazole [PriLOSEC] 20 mg PO DAILY #30 capsule. 10/06/18 Sertraline [Zoloft] 50 mg PO DAILY #30 tablet 10/06/18 amLODIPine [Norvasc] 5 mg PO DAILY #30 tablet 10/06/18 Allergies Allergy/AdvReac Type Severity Reaction Status Date / Time No Known Allergies Allergy Verified 11/22/17 17:25 Constitutional: Denies: fever, chills, weakness Cardiovascular: Denies: chest pain, palpitations Respiratory: Denies: cough, dyspnea Gastrointestinal: Denies: abdominal pain, nausea, vomiting, diarrhea, constipation Genitourinary: Denies: urgency, dysuria Musculoskeletal: Denies: back pain Neurological: Denies: headache, weakness, numbness Psychiatric: Reports: depression, suicidal thoughts (reported to my attending that he " wanted a break from life"). Denies: anxiety, homicidal thoughts, auditory hallucinations, visual hallucinations Endocrine: Denies: fatigue Past Medical History - Past Medical History Attestation: Yes The following information was validated with the patient. Medical history: Reports: coronary artery disease, hyperlipidemia, hypertension, myocardial infarction, syncope Surgical history: Reports: angioplasty/stent, herniorrhaphy Psychiatric history: Reports: depression - Social History Smoking Status: Former smoker Smokeless Tobacco Status: No Alcohol use: Reports: none Drug use: Reports: none Physical Exam - General Limitations: no limitations General appearance: alert, in no apparent distress, obese - Head Head exam: atraumatic, normocephalic - Eye Eye exam: Present: normal appearance, PERRL, EOMI - ENT ENT exam: normal exam - Neck Neck exam: Present: normal inspection, full ROM, trachea midline - Chest Chest inspection: Present: normal inspection, symmetric chest wall rise - Respiratory Respiratory exam: Present: normal lung sounds bilaterally. Absent: respiratory distress, wheezes - Cardiovascular Cardiovascular exam: Present: regular rate, normal rhythm, normal heart sounds - Abdominal Exam Abdominal exam: Present: soft, Non-Tender, normal bowel sounds. Absent: distention, guarding - Extremities Exam Extremities exam: Present: normal inspection, normal capillary refill. Absent: tenderness, calf tenderness - Back Exam Back exam: Present: normal inspection - Neurological Exam Neurological exam: Present: alert, oriented X3 - Psychiatric Psychiatric exam: Present: depressed, flat affect, suicidal ideation. Absent: manic, homicidal ideation - Skin Skin exam: Present: warm, dry, intact Course Course Narrative: Male patient resting comfortably in bed. Patient did take too much of his blood pressure medication. States he has not had it for several days so he took extra day because he had headache. He is refusing any type of headache medication from me. We will observe the patient for approximately 6 hours after his last ingestion which was around 1630 tonight. We will have 1A evaluated the patient after this as well. We did get a basic lab workup on the patient seek he is hemodynamically stable at this time. He is cooperative with our plan. Patient will be signed out to the night crew. - Consultations Consultation #1: We spoke with poison control. They recommended a 6 hour observation. Their recommendation that the patient decompensates is for atropine as well as vasopressors. Time: 19:24 Vital Signs Temperature 98.6 F 12/19/18 18:46 Pulse Rate 80 12/19/18 18:46 Respiratory Rate 18 12/19/18 18:46 Blood Pressure 155/100 12/19/18 18:46 O2 Sat by Pulse Oximetry 99 12/19/18 18:46 Temperature 98.6 F 12/19/18 18:46 Pulse Rate 80 12/19/18 18:46 Respiratory Rate 18 12/19/18 18:46 Blood Pressure 155/100 12/19/18 18:46 O2 Sat by Pulse Oximetry 99 12/19/18 18:46 Oxygen Delivery Oxygen Delivery Room Air Psych - Lab Data Result diagrams: 12/19/18 19:12 12/19/18 19:12 Lab Results 12/19/18 12/19/18 12/19/18 Range/Units 18:54 18:54 19:12 WBC 7.8 (4.3-11.1) K/mcL RBC 4.67 (4.19-5.50) M/mcL Hgb 12.8 L (12.9-16.9) g/dL Hct 38.9 (37.5-50.1) % MCV 83.3 (83.0-100.0) fL MCH 27.4 L (28.0-33.3) pg MCHC 32.9 (31.6-35.5) g/dL RDW 15.6 H (11.5-14.5) % Plt Count 378 (140-400) K/mcL MPV 9.1 L (9.4-12.4) fL Immature Gran % 0.3 (0-4) % Seg Neutrophils % 61.5 % Lymphocytes % 27.1 % Monocytes % 8.6 % Eosinophils % 1.9 % Basophils % 0.6 % Neutrophils # 4.8 (1.6-8.9) K/mcL Lymphocytes # 2.1 (0.6-4.6) K/mcL Monocytes # 0.7 (0.0-1.3) K/mcL Eosinophils # 0.2 (0.0-0.6) K/mcL Basophils # 0.1 (0.0-0.2) K/mcL Sodium (136-145) mEq/L Potassium (3.5-5.1) mEq/L Chloride (98-107) mEq/L Carbon Dioxide (23-29) mEq/L BUN (6-20) mg/dL Creatinine (0.70-1.30) mg/dL Est GFR ( Amer) (> 60) Est GFR (Non-Af Amer) (> 60) BUN/Creatinine Ratio (6-26) Glucose (70-105) mg/dL Calculated Osmolality (280-300) Lactic Acid (0.5-2.2) mmol/L Calcium (8.6-10.3) mg/dL Urine Color Yellow (Yellow) Urine Clarity Clear (Clear) Urine pH 5.5 (5.0-8.0) pH Units Ur Specific [place] 1.013 (1.010-1.025) Urine Protein Negative (Neg-Trace) mg/dL Urine Glucose (UA) Normal (Normal) mg/dL Urine Ketones Negative (Negative) mg/dL Urine Blood Negative (Negative) Urine Nitrite Negative (Negative) Urine Bilirubin Negative (Negative) Urine Urobilinogen Normal (Normal) mg/dL Ur Leukocyte Esterase Negative (Negative) Salicylates (15.0-30.0) mg/dL Acetaminophen (10-20) mcg/mL Ur Drug Screen Interp See Below Ethyl Alcohol (Less than 10) mg/dL 12/19/18 12/19/18 Range/Units 19:12 19:12 WBC (4.3-11.1) K/mcL RBC (4.19-5.50) M/mcL Hgb (12.9-16.9) g/dL Hct (37.5-50.1) % MCV (83.0-100.0) fL MCH (28.0-33.3) pg MCHC (31.6-35.5) g/dL RDW (11.5-14.5) % Plt Count (140-400) K/mcL MPV (9.4-12.4) fL Immature Gran % (0-4) % Seg Neutrophils % % Lymphocytes % % Monocytes % % Eosinophils % % Basophils % % Neutrophils # (1.6-8.9) K/mcL Lymphocytes # (0.6-4.6) K/mcL Monocytes # (0.0-1.3) K/mcL Eosinophils # (0.0-0.6) K/mcL Basophils # (0.0-0.2) K/mcL Sodium 137 (136-145) mEq/L Potassium 3.9 (3.5-5.1) mEq/L Chloride 105 (98-107) mEq/L Carbon Dioxide 21 L (23-29) mEq/L BUN 15 (6-20) mg/dL Creatinine 1.06 (0.70-1.30) mg/dL Est GFR ( Amer) > 60 (> 60) Est GFR (Non-Af Amer) > 60 (> 60) BUN/Creatinine Ratio 14 (6-26) Glucose 97 (70-105) mg/dL Calculated Osmolality 285 (280-300) Lactic Acid 1.0 (0.5-2.2) mmol/L Calcium 9.2 (8.6-10.3) mg/dL Urine Color (Yellow) Urine Clarity (Clear) Urine pH (5.0-8.0) pH Units Ur Specific [place] (1.010-1.025) Urine Protein (Neg-Trace) mg/dL Urine Glucose (UA) (Normal) mg/dL Urine Ketones (Negative) mg/dL Urine Blood (Negative) Urine Nitrite (Negative) Urine Bilirubin (Negative) Urine Urobilinogen (Normal) mg/dL Ur Leukocyte Esterase (Negative) Salicylates < 2.5 L (15.0-30.0) mg/dL Acetaminophen < 10 L (10-20) mcg/mL Ur Drug Screen Interp Ethyl Alcohol < 10 (Less than 10) mg/dL - EKG Data EKG attestation: Yes I reviewed and interpreted this EKG. EKG results narrative: Normal sinus rhythm at a rate 84. AK interval is 129. QRS duration is 79 QTc is 365. QTC is 432. No signs of acute ischemia. Good R-wave progression. No signs of acute ischemia. 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 Psychiatric Medical Clearance - Medical Clearance Checklist Medical History: No Social History Section defined Current Vitals: Last Vital Signs Temp 98.6 F 12/19/18 18:46 Pulse 80 12/19/18 18:46 Resp 18 12/19/18 18:46 BP 155/100 12/19/18 18:46 Pulse Ox 99 12/19/18 18:46 Psychiatric Lab Panel: Drug Levels and Toxicity 12/19/18 19:12 Acetaminophen < 10 L Ethyl Alcohol < 10 Abnormal Labs: Abnormal lab results Hgb 12.8 g/dL (12.9-16.9) L 12/19/18 19:12 MCH 27.4 pg (28.0-33.3) L 12/19/18 19:12 RDW 15.6 % (11.5-14.5) H 12/19/18 19:12 MPV 9.1 fL (9.4-12.4) L 12/19/18 19:12 Carbon Dioxide 21 mEq/L (23-29) L 12/19/18 19:12 Salicylates < 2.5 mg/dL (15.0-30.0) L 12/19/18 19:12 Acetaminophen < 10 mcg/mL (10-20) L 12/19/18 19:12 Statement of Medical Clearance: I have evaluated the patient, reviewed diagnostic information, and certify that the patient's medical condition is sufficiently stable that transfer to the psychiatric unit does not pose a significant risk of deterioration. Attestation Statement - Attestation Attestation: I, Braeden Alexander, examined this patient and my medical decision-making was reviewed with the ALIGNER/PA/Advanced Practice Nurse/Resident Physician. I agree with the documented findings, disposition and treatment plan as described except to the extent set forth below. 58-year-old male presents emergency Department for evaluation of suicide attempt by overdose of medications. Call to EMS was that patient tried to end his life by taking extra of his medications. Patient apparently took 10 pills of his 5 mg amlodipine and 5 pills of his 12.5 mg metoprolol. Patient states he took these about 2 and half hours prior to arrival. Patient told me during my initial evaluation that he took them "to escape reality" patient denied suicidal ideation to me. This is a different story than was told to EMS. Poison Control Center was counseled regarding the patient's case and presentation who recommended that he be observed for at least 6 hours emergency department. Resident reevaluated the patient and the patient told her that he "noticed his blood pressure was high so started taking extra of his medication to bring down his blood pressure". The patient's reported history has changed multiple times in the emergency department. At the time of the enema shifts he is still being observed and was signed out to Dr. Hai Pace pending reevaluation, behavioral health evaluation and disposition.
[2018-12-19 19:33] LABS: Basophils # 0.1 K/mcL (0.0-0.2); Basophils % 0.6 %; Eosinophils # 0.2 K/mcL (0.0-0.6); Eosinophils % 1.9 %; Hematocrit 38.9 % (37.5-50.1); Hemoglobin 12.8 g/dL (12.9-16.9); Immature Granulocytes % 0.3 % (0-4); Lymphocytes # 2.1 K/mcL (0.6-4.6); Lymphocytes % 27.1 %; Mean Corpuscular HGB Conc 32.9 g/dL (31.6-35.5); Mean Corpuscular Hemoglobin 27.4 pg (28.0-33.3); Mean Corpuscular Volume 83.3 fL (83.0-100.0); Mean Platelet Volume 9.1 fL (9.4-12.4); Monocytes # 0.7 K/mcL (0.0-1.3); Monocytes % 8.6 %; Neutrophils # 4.8 K/mcL (1.6-8.9); Platelet Count 378 K/mcL (140-400); Red Blood Count 4.67 M/mcL (4.19-5.50); Red Cell Distribution Width 15.6 % (11.5-14.5); Segmented Neutrophils % 61.5 %; White Blood Count 7.8 K/mcL (4.3-11.1)
[2018-12-19 19:57] LABS: Acetaminophen < 10 mcg/mL (10-20); BUN/Creatinine Ratio 14 (6-26); Blood Urea Nitrogen 15 mg/dL (6-20); Calcium 9.2 mg/dL (8.6-10.3); Carbon Dioxide 21 mEq/L (23-29); Chloride 105 mEq/L (98-107); Ethanol < 10 mg/dL (Less than 10); Glucose 97 mg/dL (70-105); Osmolality,Calculated 285 (280-300); Potassium 3.9 mEq/L (3.5-5.1); Salicylate < 2.5 mg/dL (15.0-30.0); Sodium 137 mEq/L (136-145); eGFR For African Americans > 60 (> 60); eGFR For Non-African Americans > 60 (> 60)
[2018-12-19 20:31] LABS: Bilirubin,Urine Negative (Negative); Blood,Urine Negative (Negative); Clarity,Urine Clear (Clear); Color,Urine Yellow (Yellow); Glucose,Urine (UA) Normal (Normal); Ketones,Urine Negative (Negative); Leukocyte Esterase,Urine Negative (Negative); Nitrite,Urine Negative (Negative); PH,Urine 5.5 pH Units (5.0-8.0); Protein,Urine Negative (Neg-Trace); Specific Gravity,Urine 1.013 (1.010-1.025); Urobilinogen,Urine Normal (Normal)
[2018-12-19 20:41] LABS: Amphetamine Screen,Urine Negative ng/mL (Cutoff=1000); Barbiturate Screen,Urine Negative ng/mL (Cutoff=200); Benzodiazepines Screen,Urine Negative ng/mL (Cutoff=200); Cannabinoid Screen,Urine Negative ng/mL (Cutoff = 50); Cocaine Screen,Urine Negative ng/mL (Cutoff= 300); Opiate Screen,Urine Negative ng/mL (Cutoff=300); Phencyclidine Screen,Urine Negative ng/mL (Cutoff=25)
--- NOTE | 2018-12-19 23:55 | Emergency Department Note ---
Disposition Clinical Impression: Overdose Qualifiers: Encounter type: initial encounter Injury intent: intentional self-harm Qualified Code(s): T50.902A - Poisoning by unspecified drugs, medicaments and biological substances, intentional self-harm, initial encounter Depression Qualifiers: Depression Type: unspecified Qualified Code(s): F32.9 - Major depressive disorder, single episode, unspecified Disposition: Still a Patient Condition: Good Time of Disposition: 07:11 Psych HPI - General Chief Complaint: ED Psychiatric Symptoms Stated Complaint: possibly took to many bp pills Time Seen by Provider: 12/19/18 18:47 Source: patient, EMS Mode of arrival: EMS Nursing Notes Reviewed: Yes Vital Signs Reviewed: Yes - History of Present Illness HPI Narrative: The following was taken from the previous attendings note for continuity of care Patient is a 58-year-old male with past medical history of myocardial infarction, CAD, hypertension, hyperlipidemia who presented today after taking multiple doses of his blood pressure pills. He states that he has not been taking any of his medications due to financial issues for an unknown amount of time. He admits to taking 8-10 his amlodipine 5 mg and 5 pills of his metoprolol 50 mg at around 1700 this evening. The patient states that he took these pills because he wanted a break from life. He denies homicidal ideation, visual hallucinations, and auditory hallucinations. The patient admits to recent stressors with Social Security issues and an upcoming anniversary with an ex . Patient denies chest pain, shortness of breath, fever, chills, abdominal pain, nausea, diarrhea, nausea, vomiting, headache, one-sided weakness, numbness, tingling, swelling. He is currently denying suicidal ideation today. He states that he did not take this medication in a suicide attempt it was for relief of his headache as well as hypertension. This ends with her documentation 58-year-old gentleman who took several Norvasc and metoprolol tablets yesterday. He reports he took 8 Norvasc tablets to me and reports he took 5 metoprolol tablets previously was reported that he took 5 x 25 mg tablets but the bottle that is brought with him is written for 50 mg. He denies any history of suicidal ideations. Additionally, he admitted that his blood pressure was elevated and he was take his medications trying his blood pressure down. As mentioned previously in the other providers notes he changes his story several different times here. I did have the behavioral medicine 1A evaluate the patient and they did speak with the psychiatrist who initially stated there ago to contract for safety however, I was concerned that he has had different stories at different times. I advised to call the ex- and discuss what the conversation was with her. She did speak to the ex- did inform us that he did have a history of a suicidal attempt and let her relief that he was going to harm himself with some medications today Pt complaint: suicidal ideation - Related Data Previous Rx's Medication Instructions Recorded Aspirin Enteric Coated [Aspirin EC] 81 mg PO DAILY #30 tablet. 10/06/18 Atorvastatin Calcium 80 mg PO HS #30 tablet 10/06/18 Clopidogrel [Plavix] 75 mg PO DAILY #30 tablet 10/06/18 Isosorbide MONOnitrate (24 HR) 30 mg PO DAILY 30 Days #30 10/06/18 [Imdur] tab.er.24h Losartan/Hydrochlorothiazide 1 each PO DAILY #30 tablet 10/06/18 [Losartan-Hctz 100-12.5 mg Tab] Metoprolol [Lopressor] 12.5 mg PO BID #30 tablet 10/06/18 Omeprazole [PriLOSEC] 20 mg PO DAILY #30 capsule. 10/06/18 Sertraline [Zoloft] 50 mg PO DAILY #30 tablet 10/06/18 amLODIPine [Norvasc] 5 mg PO DAILY #30 tablet 10/06/18 Allergies Allergy/AdvReac Type Severity Reaction Status Date / Time No Known Allergies Allergy Verified 11/22/17 17:25 Constitutional: Denies: fever, chills, weakness Cardiovascular: Denies: chest pain, palpitations Respiratory: Denies: cough, dyspnea Gastrointestinal: Denies: abdominal pain, nausea, vomiting, diarrhea, constipation Genitourinary: Denies: urgency, dysuria Musculoskeletal: Denies: back pain Neurological: Denies: headache, weakness, numbness Psychiatric: Reports: depression, suicidal thoughts (reported to my attending that he " wanted a break from life"). Denies: anxiety, homicidal thoughts, auditory hallucinations, visual hallucinations Endocrine: Denies: fatigue Past Medical History - Past Medical History Medical history: Reports: coronary artery disease, hyperlipidemia, hypertension, myocardial infarction, syncope Surgical history: Reports: angioplasty/stent, herniorrhaphy Psychiatric history: Reports: depression - Social History Smoking Status: Former smoker Smokeless Tobacco Status: No Alcohol use: Reports: none Drug use: Reports: none Physical Exam - General Limitations: no limitations General appearance: alert, in no apparent distress, obese Course Course Narrative: Patient was signed out to at change of shift please see her corresponding note and disposition Vital Signs Temperature 98.6 F 12/19/18 18:46 Pulse Rate 80 12/19/18 18:46 Respiratory Rate 18 12/19/18 18:46 Blood Pressure 155/100 12/19/18 18:46 O2 Sat by Pulse Oximetry 99 12/19/18 18:46 Temperature 98.6 F 12/19/18 18:46 Pulse Rate 58 12/20/18 05:05 Respiratory Rate 20 12/20/18 05:05 Blood Pressure 133/91 12/20/18 05:05 O2 Sat by Pulse Oximetry 98 12/20/18 05:05 Oxygen Delivery Oxygen Delivery Room Air Psych - Lab Data Result diagrams: 12/19/18 19:12 12/19/18 19:12 Lab Results 12/19/18 12/19/18 12/19/18 Range/Units 18:54 18:54 19:12 WBC 7.8 (4.3-11.1) K/mcL RBC 4.67 (4.19-5.50) M/mcL Hgb 12.8 L (12.9-16.9) g/dL Hct 38.9 (37.5-50.1) % MCV 83.3 (83.0-100.0) fL MCH 27.4 L (28.0-33.3) pg MCHC 32.9 (31.6-35.5) g/dL RDW 15.6 H (11.5-14.5) % Plt Count 378 (140-400) K/mcL MPV 9.1 L (9.4-12.4) fL Immature Gran % 0.3 (0-4) % Seg Neutrophils % 61.5 % Lymphocytes % 27.1 % Monocytes % 8.6 % Eosinophils % 1.9 % Basophils % 0.6 % Neutrophils # 4.8 (1.6-8.9) K/mcL Lymphocytes # 2.1 (0.6-4.6) K/mcL Monocytes # 0.7 (0.0-1.3) K/mcL Eosinophils # 0.2 (0.0-0.6) K/mcL Basophils # 0.1 (0.0-0.2) K/mcL Sodium (136-145) mEq/L Potassium (3.5-5.1) mEq/L Chloride (98-107) mEq/L Carbon Dioxide (23-29) mEq/L BUN (6-20) mg/dL Creatinine (0.70-1.30) mg/dL Est GFR ( Amer) (> 60) Est GFR (Non-Af Amer) (> 60) BUN/Creatinine Ratio (6-26) Glucose (70-105) mg/dL Calculated Osmolality (280-300) Lactic Acid (0.5-2.2) mmol/L Calcium (8.6-10.3) mg/dL Urine Color Yellow (Yellow) Urine Clarity Clear (Clear) Urine pH 5.5 (5.0-8.0) pH Units Ur Specific [place] 1.013 (1.010-1.025) Urine Protein Negative (Neg-Trace) mg/dL Urine Glucose (UA) Normal (Normal) mg/dL Urine Ketones Negative (Negative) mg/dL Urine Blood Negative (Negative) Urine Nitrite Negative (Negative) Urine Bilirubin Negative (Negative) Urine Urobilinogen Normal (Normal) mg/dL Ur Leukocyte Esterase Negative (Negative) Salicylates (15.0-30.0) mg/dL Urine Opiates Screen Negative (Zaxulb=244) ng/mL Ur Buprenorphine Scrn Negative (Cutoff=5) ng/mL Acetaminophen (10-20) mcg/mL Ur Barbiturates Screen Negative (Prmlxw=434) ng/mL Ur Phencyclidine Scrn Negative (Cutoff=25) ng/mL Ur Amphetamines Screen Negative (Lxanyo=8879) ng/mL U Benzodiazepines Scrn Negative (Ddmiyk=488) ng/mL Urine Cocaine Screen Negative (Cutoff= 300) ng/mL U Marijuana (THC) Screen Negative (Cutoff = 50) ng/mL Ur Drug Screen Interp See Below Ethyl Alcohol (Less than 10) mg/dL 12/19/18 12/19/18 Range/Units 19:12 19:12 WBC (4.3-11.1) K/mcL RBC (4.19-5.50) M/mcL Hgb (12.9-16.9) g/dL Hct (37.5-50.1) % MCV (83.0-100.0) fL MCH (28.0-33.3) pg MCHC (31.6-35.5) g/dL RDW (11.5-14.5) % Plt Count (140-400) K/mcL MPV (9.4-12.4) fL Immature Gran % (0-4) % Seg Neutrophils % % Lymphocytes % % Monocytes % % Eosinophils % % Basophils % % Neutrophils # (1.6-8.9) K/mcL Lymphocytes # (0.6-4.6) K/mcL Monocytes # (0.0-1.3) K/mcL Eosinophils # (0.0-0.6) K/mcL Basophils # (0.0-0.2) K/mcL Sodium 137 (136-145) mEq/L Potassium 3.9 (3.5-5.1) mEq/L Chloride 105 (98-107) mEq/L Carbon Dioxide 21 L (23-29) mEq/L BUN 15 (6-20) mg/dL Creatinine 1.06 (0.70-1.30) mg/dL Est GFR ( Amer) > 60 (> 60) Est GFR (Non-Af Amer) > 60 (> 60) BUN/Creatinine Ratio 14 (6-26) Glucose 97 (70-105) mg/dL Calculated Osmolality 285 (280-300) Lactic Acid 1.0 (0.5-2.2) mmol/L Calcium 9.2 (8.6-10.3) mg/dL Urine Color (Yellow) Urine Clarity (Clear) Urine pH (5.0-8.0) pH Units Ur Specific [place] (1.010-1.025) Urine Protein (Neg-Trace) mg/dL Urine Glucose (UA) (Normal) mg/dL Urine Ketones (Negative) mg/dL Urine Blood (Negative) Urine Nitrite (Negative) Urine Bilirubin (Negative) Urine Urobilinogen (Normal) mg/dL Ur Leukocyte Esterase (Negative) Salicylates < 2.5 L (15.0-30.0) mg/dL Urine Opiates Screen (Wplekl=854) ng/mL Ur Buprenorphine Scrn (Cutoff=5) ng/mL Acetaminophen < 10 L (10-20) mcg/mL Ur Barbiturates Screen (Sgwtao=098) ng/mL Ur Phencyclidine Scrn (Cutoff=25) ng/mL Ur Amphetamines Screen (Klgusc=9553) ng/mL U Benzodiazepines Scrn (Ltavpp=188) ng/mL Urine Cocaine Screen (Cutoff= 300) ng/mL U Marijuana (THC) Screen (Cutoff = 50) ng/mL Ur Drug Screen Interp Ethyl Alcohol < 10 (Less than 10) mg/dL Psychiatric Medical Clearance - Medical Clearance Checklist Medical History: No Social History Section defined Current Vitals: Last Vital Signs Temp 98.6 F 12/19/18 18:46 Pulse 58 12/20/18 05:05 Resp 20 12/20/18 05:05 BP 133/91 12/20/18 05:05 Pulse Ox 98 12/20/18 05:05 Psychiatric Lab Panel: Drug Levels and Toxicity 12/19/18 12/19/18 18:54 19:12 Urine Opiates Screen Negative Acetaminophen < 10 L Ur Barbiturates Screen Negative Ur Phencyclidine Scrn Negative Ur Amphetamines Screen Negative U Benzodiazepines Scrn Negative Urine Cocaine Screen Negative U Marijuana (THC) Screen Negative Ethyl Alcohol < 10 Abnormal Labs: Abnormal lab results Hgb 12.8 g/dL (12.9-16.9) L 12/19/18 19:12 MCH 27.4 pg (28.0-33.3) L 12/19/18 19:12 RDW 15.6 % (11.5-14.5) H 12/19/18 19:12 MPV 9.1 fL (9.4-12.4) L 12/19/18 19:12 Carbon Dioxide 21 mEq/L (23-29) L 12/19/18 19:12 Salicylates < 2.5 mg/dL (15.0-30.0) L 12/19/18 19:12 Acetaminophen < 10 mcg/mL (10-20) L 12/19/18 19:12 Statement of Medical Clearance: I have evaluated the patient, reviewed diagnostic information, and certify that the patient's medical condition is sufficiently stable that transfer to the psychiatric unit does not pose a significant risk of deterioration.
[2018-12-20 08:42] VITALS: BP 128/87
--- NOTE | 2018-12-20 09:34 | Emergency Department Note ---
Disposition Clinical Impression: Suicidal ideation Overdose Qualifiers: Encounter type: initial encounter Injury intent: intentional self-harm Qualified Code(s): T50.902A - Poisoning by unspecified drugs, medicaments and biological substances, intentional self-harm, initial encounter Depression Qualifiers: Depression Type: unspecified Qualified Code(s): F32.9 - Major depressive disorder, single episode, unspecified Disposition: Admitted As Inpatient Condition: Undetermined Referrals: NONE,PCP [Primary Care Provider] - Time of Disposition: 09:33 General Adult HPI - General Chief complaint: ED Psychiatric Symptoms Stated complaint: possibly took to many bp pills Time Seen by Provider: 12/19/18 18:47 Source: patient, EMS Mode of arrival: EMS Limitations: no limitations Nursing Notes Reviewed: Yes Vital Signs Reviewed: Yes - History of Present Illness Pain Scale: 2 - Related Data Previous Rx's Medication Instructions Recorded Aspirin Enteric Coated [Aspirin EC] 81 mg PO DAILY #30 tablet. 10/06/18 Atorvastatin Calcium 80 mg PO HS #30 tablet 10/06/18 Clopidogrel [Plavix] 75 mg PO DAILY #30 tablet 10/06/18 Isosorbide MONOnitrate (24 HR) 30 mg PO DAILY 30 Days #30 10/06/18 [Imdur] tab.er.24h Losartan/Hydrochlorothiazide 1 each PO DAILY #30 tablet 10/06/18 [Losartan-Hctz 100-12.5 mg Tab] Metoprolol [Lopressor] 12.5 mg PO BID #30 tablet 10/06/18 Omeprazole [PriLOSEC] 20 mg PO DAILY #30 capsule. 10/06/18 Sertraline [Zoloft] 50 mg PO DAILY #30 tablet 10/06/18 amLODIPine [Norvasc] 5 mg PO DAILY #30 tablet 10/06/18 Allergies Allergy/AdvReac Type Severity Reaction Status Date / Time No Known Allergies Allergy Verified 11/22/17 17:25 Constitutional: Denies: fever, chills, weakness Cardiovascular: Denies: chest pain, palpitations Respiratory: Denies: cough, dyspnea Gastrointestinal: Denies: abdominal pain, nausea, vomiting, diarrhea, constipation Genitourinary: Denies: urgency, dysuria Musculoskeletal: Denies: back pain Neurological: Denies: headache, weakness, numbness Psychiatric: Reports: depression, suicidal thoughts (reported to my attending that he " wanted a break from life"). Denies: anxiety, homicidal thoughts, auditory hallucinations, visual hallucinations Endocrine: Denies: fatigue Past Medical History - Past Medical History Medical history: Reports: coronary artery disease, hyperlipidemia, hypertension, myocardial infarction, syncope Surgical history: Reports: angioplasty/stent, herniorrhaphy Psychiatric history: Reports: depression - Social History Smoking Status: Former smoker Smokeless Tobacco Status: No Alcohol use: Reports: none Drug use: Reports: none Physical Exam - General Limitations: no limitations General appearance: alert, in no apparent distress, obese Course - Reevaluation(s) Reevaluation #1: Patient signed out pending disposition. 1A is admitting the patient. [place] slip reviewed and on chart. Time: 09:33 Vital Signs Temperature 98.6 F 12/19/18 18:46 Pulse Rate 80 12/19/18 18:46 Respiratory Rate 18 12/19/18 18:46 Blood Pressure 155/100 12/19/18 18:46 O2 Sat by Pulse Oximetry 99 12/19/18 18:46 Temperature 98.6 F 12/19/18 18:46 Pulse Rate 60 12/20/18 08:40 Respiratory Rate 15 12/20/18 08:40 Blood Pressure 128/87 12/20/18 08:40 O2 Sat by Pulse Oximetry 96 12/20/18 08:40 Oxygen Delivery Oxygen Delivery Room Air Medical Decision Making - Lab Data Result diagrams: 12/19/18 19:12 12/19/18 19:12 Lab Results 12/19/18 12/19/18 12/19/18 Range/Units 18:54 18:54 19:12 WBC 7.8 (4.3-11.1) K/mcL RBC 4.67 (4.19-5.50) M/mcL Hgb 12.8 L (12.9-16.9) g/dL Hct 38.9 (37.5-50.1) % MCV 83.3 (83.0-100.0) fL MCH 27.4 L (28.0-33.3) pg MCHC 32.9 (31.6-35.5) g/dL RDW 15.6 H (11.5-14.5) % Plt Count 378 (140-400) K/mcL MPV 9.1 L (9.4-12.4) fL Immature Gran % 0.3 (0-4) % Seg Neutrophils % 61.5 % Lymphocytes % 27.1 % Monocytes % 8.6 % Eosinophils % 1.9 % Basophils % 0.6 % Neutrophils # 4.8 (1.6-8.9) K/mcL Lymphocytes # 2.1 (0.6-4.6) K/mcL Monocytes # 0.7 (0.0-1.3) K/mcL Eosinophils # 0.2 (0.0-0.6) K/mcL Basophils # 0.1 (0.0-0.2) K/mcL Sodium (136-145) mEq/L Potassium (3.5-5.1) mEq/L Chloride (98-107) mEq/L Carbon Dioxide (23-29) mEq/L BUN (6-20) mg/dL Creatinine (0.70-1.30) mg/dL Est GFR ( Amer) (> 60) Est GFR (Non-Af Amer) (> 60) BUN/Creatinine Ratio (6-26) Glucose (70-105) mg/dL Calculated Osmolality (280-300) Lactic Acid (0.5-2.2) mmol/L Calcium (8.6-10.3) mg/dL Urine Color Yellow (Yellow) Urine Clarity Clear (Clear) Urine pH 5.5 (5.0-8.0) pH Units Ur Specific [place] 1.013 (1.010-1.025) Urine Protein Negative (Neg-Trace) mg/dL Urine Glucose (UA) Normal (Normal) mg/dL Urine Ketones Negative (Negative) mg/dL Urine Blood Negative (Negative) Urine Nitrite Negative (Negative) Urine Bilirubin Negative (Negative) Urine Urobilinogen Normal (Normal) mg/dL Ur Leukocyte Esterase Negative (Negative) Salicylates (15.0-30.0) mg/dL Urine Opiates Screen Negative (Cbatus=369) ng/mL Ur Buprenorphine Scrn Negative (Cutoff=5) ng/mL Acetaminophen (10-20) mcg/mL Ur Barbiturates Screen Negative (Oemxlc=787) ng/mL Ur Phencyclidine Scrn Negative (Cutoff=25) ng/mL Ur Amphetamines Screen Negative (Tjxfag=4628) ng/mL U Benzodiazepines Scrn Negative (Vixvho=523) ng/mL Urine Cocaine Screen Negative (Cutoff= 300) ng/mL U Marijuana (THC) Screen Negative (Cutoff = 50) ng/mL Ur Drug Screen Interp See Below Ethyl Alcohol (Less than 10) mg/dL 12/19/18 12/19/18 Range/Units 19:12 19:12 WBC (4.3-11.1) K/mcL RBC (4.19-5.50) M/mcL Hgb (12.9-16.9) g/dL Hct (37.5-50.1) % MCV (83.0-100.0) fL MCH (28.0-33.3) pg MCHC (31.6-35.5) g/dL RDW (11.5-14.5) % Plt Count (140-400) K/mcL MPV (9.4-12.4) fL Immature Gran % (0-4) % Seg Neutrophils % % Lymphocytes % % Monocytes % % Eosinophils % % Basophils % % Neutrophils # (1.6-8.9) K/mcL Lymphocytes # (0.6-4.6) K/mcL Monocytes # (0.0-1.3) K/mcL Eosinophils # (0.0-0.6) K/mcL Basophils # (0.0-0.2) K/mcL Sodium 137 (136-145) mEq/L Potassium 3.9 (3.5-5.1) mEq/L Chloride 105 (98-107) mEq/L Carbon Dioxide 21 L (23-29) mEq/L BUN 15 (6-20) mg/dL Creatinine 1.06 (0.70-1.30) mg/dL Est GFR ( Amer) > 60 (> 60) Est GFR (Non-Af Amer) > 60 (> 60) BUN/Creatinine Ratio 14 (6-26) Glucose 97 (70-105) mg/dL Calculated Osmolality 285 (280-300) Lactic Acid 1.0 (0.5-2.2) mmol/L Calcium 9.2 (8.6-10.3) mg/dL Urine Color (Yellow) Urine Clarity (Clear) Urine pH (5.0-8.0) pH Units Ur Specific [place] (1.010-1.025) Urine Protein (Neg-Trace) mg/dL Urine Glucose (UA) (Normal) mg/dL Urine Ketones (Negative) mg/dL Urine Blood (Negative) Urine Nitrite (Negative) Urine Bilirubin (Negative) Urine Urobilinogen (Normal) mg/dL Ur Leukocyte Esterase (Negative) Salicylates < 2.5 L (15.0-30.0) mg/dL Urine Opiates Screen (Kpqifc=581) ng/mL Ur Buprenorphine Scrn (Cutoff=5) ng/mL Acetaminophen < 10 L (10-20) mcg/mL Ur Barbiturates Screen (Shsgjw=382) ng/mL Ur Phencyclidine Scrn (Cutoff=25) ng/mL Ur Amphetamines Screen (Gxqizj=7007) ng/mL U Benzodiazepines Scrn (Hoaolk=437) ng/mL Urine Cocaine Screen (Cutoff= 300) ng/mL U Marijuana (THC) Screen (Cutoff = 50) ng/mL Ur Drug Screen Interp Ethyl Alcohol < 10 (Less than 10) mg/dL
[2018-12-20] MEDS ORDERED: Acetaminophen 325 MG TABLET PO PRN (10:19)
[2018-12-20] MEDS ORDERED: Mag Hydrox/Al Hydrox/Simeth 30 ML UDC PO PRN (10:19)
[2018-12-20] MEDS ORDERED: *HR* LORazepam 1 MG TABLET PO PRN (10:19)
[2018-12-20] MEDS ORDERED: MOM Conc 10 ML UD.LIQ PO PRN (10:19)
[2018-12-20] MEDS ORDERED: hydrOXYzine pamoate 25 MG CAPSULE PO PRN (10:19)
[2018-12-20] MEDS ORDERED: *HR* LORazepam 2 MG/ML VIAL IM PRN (10:19)
[2018-12-20] MEDS ORDERED: traZODone 50 MG TABLET PO PRN (10:19)
[2018-12-20] MEDS ORDERED: Haloperidol Lactate 5 MG/ML VIAL IM PRN (10:19)
--- NOTE | 2018-12-20 14:16 | Discharge Summary ---
Date of Encounter: 12/20/18 Time of Encounter: 13:44 History of Present Illness Chief complaint: overdose Admitted From: Home History of Present Illness: Mr. Wakefield is a 58 year old male who was admitted out of concern for SI. There were multiple conflicting stories about what happened prior to his admission and staff thought it best to bring him on the unit to sort things out. On eval today client is very calm and cooperative. He reports not understanding how he ended up here. He denies having any mental health history. He admits to multiple stressors recently and feeling overwhelmed but denies he is depressed. States he has never felt like he has needed treatment for depression and does not want medication now. He is open to the idea of talking with a counselor given all of his social stressors but he is not interested in remaining inpatient or doing anything more invasive than talk therapy. Client denies any history of suicide attempts. Denies any history of mental health hospitalizations, outpatient treatment, or med trials. He has no AOD issues. He has a son with Gender Identity issues and a sister that attempted suicide after a nasty divorce but he reports she is doing well now. 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 He became concerned with several things he saw in the workplace including staffing ratios and patient falls. When he was unable to fix things with his own supervisors he took his concerns to the state/corporate level. Two weeks later he was fired. He is currently sueing them for retaliation. Client went to work for [employer] in order to bring in some money but he has had two heart attacks since starting there and has been taken by ambulance from work to the ER four times for passing out. [employer] told him he needed to stop working right away in order to qualify for assistance so client recently quit his job at [employer] and now has no real income. He lives with his 28y/o son and he has joint custody of his 16y/o son. Family is supportive, including his ex- . Yesterday client became frustrated with his situation and noticed his blood pressure was high (190s/140s). Client states he cannot afford his BP meds right now so he has not been taking them consistently. He took both his Amlodipine and Metoprolol when he realized his blood pressure was high yesterday. When he rechecked his BP it had not come down so he took the meds again. Ended up taking three rounds of both blood pressure medications. Client then called his ex- who works for the State to vent about his situation. Told her he "wanted all this bull shit to end." They argued and he hung up on her. She called him back repeatedly and he kept hanging up on her. She became concerned and called the police. Client states when the police came he was just pulling into his driveway. He went to the ER with them willingly. Blood pressure in ER never showed signs of being too low/indicative of an overdose. However, staff called his ex- and she was concerned enough for client's safety that he was admitted to 1A. Staff also spoke with his son who was not worried about his father's safety and felt comfortable having him come home. However, there were too many conflicting reports to guarantee client's safety so he was admitted. Client reports today he never intended to make his ex- believe he was trying to end his life. He states he did tell her he wanted it to end but that he was referring to his social situation and not his life. He recognizes he probably scared her by repeatedly hanging up the phone on her but that he was angry and did not want to talk. Client adamantly denies he is at risk for self harm. "I have too much to live for." He does not present as outwardly depressed today. He is outgoing and talkative. Full and bright affect. He demonstrates future orientation. He does not want to remain in the hospital and has consistently said he was not attempting suicide since arriving on 1A. He lives with his adult son who is comfortable having him back in the house and will be done with his work shift today to be with client starting at 3pm. Client is agreeable to outpatient follow up with a counselor. Will plan to discharge home. Total time spent with client greater than 30 minutes. Past Med Surg Social Fam HX - Past Medical History Medical history: coronary artery disease, hyperlipidemia, hypertension, myocardial infarction, syncope - Past Psychiatric History Psychiatric history: Reports: no psych history Family psychiatric history: Yes Family Psychiatric History Details: son-gender identity disorder. sister- depression following divorce Family History of Suicide: Attempted Family Suicide History Details: sister - Past Surgical History Surgical History: angioplasty/stent, herniorrhaphy - Social History Smoking Status: Former smoker Smokeless Tobacco Status: No Alcohol use: none Drug use: none - Family History Mother Living Status: Hx Family Cancer: Yes (lung cancer) Father History Unknown: Yes Adopted: No Family Member Ethnicity: Non- Living Status: Age at : 89 Hx Family Cardiac Disorders: No Hx Family Respiratory Disorders: No Hx Family Cancer: No Hx Family GI Disorders: No Hx Family Genitourinary Disorders: No Hx Family Endocrine Disorder: Yes Hx Family Musculoskeletal Disorders: No Hx Family Neuromuscular Disorders: No Hx Family Neurologic Disorders: No Hx Family HEENT Disorders: No Hx Family Autoimmune Disorders: No Hx Family Reproductive Disorders: No Hx Family Psychosocial Disorders: No Hx Family Medical Disorders: No Medications - Discharge Medications Aspirin Enteric Coated [Aspirin EC] 81 mg PO DAILY #30 tablet. 10/06/18 [Rx] Atorvastatin Calcium 80 mg PO HS #30 tablet 10/06/18 [Rx] Clopidogrel [Plavix] 75 mg PO DAILY #30 tablet 10/06/18 [Rx] Isosorbide MONOnitrate (24 HR) [Imdur] 30 mg PO DAILY 30 Days #30 tab.er.24h 10/06/18 [Rx] Losartan/Hydrochlorothiazide [Losartan-Hctz 100-12.5 mg Tab] 1 each PO DAILY #30 tablet 10/06/18 [Rx] Metoprolol [Lopressor] 12.5 mg PO BID #30 tablet 10/06/18 [Rx] Omeprazole [PriLOSEC] 20 mg PO DAILY #30 capsule. 10/06/18 [Rx] Sertraline [Zoloft] 50 mg PO DAILY #30 tablet 10/06/18 [Rx] amLODIPine [Norvasc] 5 mg PO DAILY #30 tablet 10/06/18 [Rx] Allergy/AdvReac Type Severity Reaction Status Date / Time No Known Allergies Allergy Verified 11/22/17 17:25 Review of Systems Constitutional: Denies: fever, chills, weakness, weight change Eyes: Denies: eye pain, vision change Ears, Nose, Throat: Denies: ear pain, throat pain, dental pain, hearing loss, congestion Cardiovascular: Denies: chest pain, palpitations, dyspnea on exertion Respiratory: Denies: cough, dyspnea, wheezes Gastrointestinal: Denies: abdominal pain, nausea, vomiting, diarrhea, constipation Genitourinary male: Denies: urgency, dysuria, frequency, genital lesions Musculoskeletal: Denies: joint swelling, joint pain Integumentary: Denies: rash, lesions, pruritus Neurological: Denies: headache, weakness, numbness, memory loss Endocrine: Denies: fatigue, heat or cold intolerance Hematologic/Lymphatic: Denies: easy bruising, lymphadenopathy Allergic/Immunologic: Denies: urticaria, itchy eyes Exam - HEENT Head exam IM: Present: atraumatic Eye exam IM: Present: EOMI, normal appearance, PERRL ENT exam IM: Present: normal exam - Neurological Neurological exam: Present: CN II-XII intact - Respiratory Respiratory exam IM: Present: CTAB - GI/Abdominal GI/Abdominal exam IM: Present: normal bowel sounds, soft. Absent: tenderness - Extremities Extremities exam IM: Present: full ROM - Skin Skin exam IM: Present: dry, warm - Constitutional Vitals: Temp Pulse Resp BP Pulse Ox 98.6 F 60 15 128/87 96 12/19/18 18:46 12/20/18 08:40 12/20/18 08:40 12/20/18 08:40 12/20/18 08:40 General appearance: age & developmentally appropriate, well-groomed, well- nourished - Musculoskeletal Gait: normal Station: relaxed Strength & Tone: normal for patient - Psychiatric Patient Orientation: Yes Person, Yes Time, Yes Place Level of alertness: Alert Behavior: calm, cooperative Psychomotor activity: Normal Eye Contact: Maintains Eye Contact Mood Description: Euthymic/stable Affect description: congruent with mood, full range Speech Volume: Normal Speech pattern: normal rate, normal rhythm, normal tone, fluent, spontaneous Language & Vocabulary: consistent with education Thought Process: Linear, Goal Oriented Thought Content: No Suicidal ideation, No Homicidal ideation, No Overt delusions Perceptual Disturbances: No Auditory hallucinations, No Visual hallucinations Attention Span Ability: Capable of Focused Attention Memory Description: Grossly Intact Patient Reliability: Reliable Historian Fund of knowledge: Yes abstraction ability, Yes average, Yes aware of current events Intelligence Estimate: Average Judgment: Fair Insight: Partial Results - Drug Levels and Toxicology Drug Levels and Toxicology: Drug Levels and Toxicity 12/19/18 12/19/18 18:54 19:12 Urine Opiates Screen Negative Acetaminophen < 10 L Ur Barbiturates Screen Negative Ur Phencyclidine Scrn Negative Ur Amphetamines Screen Negative U Benzodiazepines Scrn Negative Urine Cocaine Screen Negative U Marijuana (THC) Screen Negative Ethyl Alcohol < 10 - Labs Labs: Laboratory Last Values WBC 7.8 K/mcL (4.3-11.1) 12/19/18 19:12 RBC 4.67 M/mcL (4.19-5.50) 12/19/18 19:12 Hgb 12.8 g/dL (12.9-16.9) L 12/19/18 19:12 Hct 38.9 % (37.5-50.1) 12/19/18 19:12 MCV 83.3 fL (83.0-100.0) 12/19/18 19:12 MCH 27.4 pg (28.0-33.3) L 12/19/18 19:12 MCHC 32.9 g/dL (31.6-35.5) 12/19/18 19:12 RDW 15.6 % (11.5-14.5) H 12/19/18 19:12 Plt Count 378 K/mcL (140-400) 12/19/18 19:12 MPV 9.1 fL (9.4-12.4) L 12/19/18 19:12 Immature Gran % 0.3 % (0-4) 12/19/18 19:12 Seg Neutrophils % 61.5 % 12/19/18 19:12 Lymphocytes % 27.1 % 12/19/18 19:12 Monocytes % 8.6 % 12/19/18 19:12 Eosinophils % 1.9 % 12/19/18 19:12 Basophils % 0.6 % 12/19/18 19:12 Neutrophils # 4.8 K/mcL (1.6-8.9) 12/19/18 19:12 Lymphocytes # 2.1 K/mcL (0.6-4.6) 12/19/18 19:12 Monocytes # 0.7 K/mcL (0.0-1.3) 12/19/18 19:12 Eosinophils # 0.2 K/mcL (0.0-0.6) 12/19/18 19:12 Basophils # 0.1 K/mcL (0.0-0.2) 12/19/18 19:12 Sodium 137 mEq/L (136-145) 12/19/18 19:12 Potassium 3.9 mEq/L (3.5-5.1) 12/19/18 19:12 Chloride 105 mEq/L (98-107) 12/19/18 19:12 Carbon Dioxide 21 mEq/L (23-29) L 12/19/18 19:12 BUN 15 mg/dL (6-20) 12/19/18 19:12 Creatinine 1.06 mg/dL (0.70-1.30) 12/19/18 19:12 Est GFR ( Amer) > 60 (> 60) 12/19/18 19:12 Est GFR (Non-Af Amer) > 60 (> 60) 12/19/18 19:12 BUN/Creatinine Ratio 14 (6-26) 12/19/18 19:12 Glucose 97 mg/dL (70-105) 12/19/18 19:12 Calculated Osmolality 285 (280-300) 12/19/18 19:12 Lactic Acid 1.0 mmol/L (0.5-2.2) 12/19/18 19:12 Calcium 9.2 mg/dL (8.6-10.3) 12/19/18 19:12 Urine Color Yellow (Yellow) 12/19/18 18:54 Urine Clarity Clear (Clear) 12/19/18 18:54 Urine pH 5.5 pH Units (5.0-8.0) 12/19/18 18:54 Ur Specific [place] 1.013 (1.010-1.025) 12/19/18 18:54 Urine Protein Negative mg/dL (Neg-Trace) 12/19/18 18:54 Urine Glucose (UA) Normal mg/dL (Normal) 12/19/18 18:54 Urine Ketones Negative mg/dL (Negative) 12/19/18 18:54 Urine Blood Negative (Negative) 12/19/18 18:54 Urine Nitrite Negative (Negative) 12/19/18 18:54 Urine Bilirubin Negative (Negative) 12/19/18 18:54 Urine Urobilinogen Normal mg/dL (Normal) 12/19/18 18:54 Ur Leukocyte Esterase Negative (Negative) 12/19/18 18:54 Salicylates < 2.5 mg/dL (15.0-30.0) L 12/19/18 19:12 Urine Opiates Screen Negative ng/mL (Gzpglj=048) 12/19/18 18:54 Ur Buprenorphine Scrn Negative ng/mL (Cutoff=5) 12/19/18 18:54 Acetaminophen < 10 mcg/mL (10-20) L 12/19/18 19:12 Ur Barbiturates Screen Negative ng/mL (Adlaei=935) 12/19/18 18:54 Ur Phencyclidine Scrn Negative ng/mL (Cutoff=25) 12/19/18 18:54 Ur Amphetamines Screen Negative ng/mL (Rzxiuv=6258) 12/19/18 18:54 U Benzodiazepines Scrn Negative ng/mL (Hjlerp=365) 12/19/18 18:54 Urine Cocaine Screen Negative ng/mL (Cutoff= 300) 12/19/18 18:54 U Marijuana (THC) Screen Negative ng/mL (Cutoff = 50) 12/19/18 18:54 Ur Drug Screen Interp See Below 12/19/18 18:54 Ethyl Alcohol < 10 mg/dL (Less than 10) 12/19/18 19:12 Diagnosis - Discharge Diagnosis (1) Adjustment disorder with depressed mood Status: Acute Assessment and Plan - Patient/Caregiver Discharge Instructions Activity: resume usual activities as tolerated Diet: low fat, low cholesterol - Follow up Plan Follow up with: NONE,PCP [Primary Care Provider] - Functional capacity at discharge: independent ambulation Overall status at discharge: Stable Disposition: Home, Self-Care Provider Date of admission: 12/20/18 10:12 Primary care physician: PCP NONE Discharging clinician: Vida Montez Hospital Course Hospital course: Mr. Wakefield is a 58 year old male who was admitted out of concern for SI. There were multiple conflicting stories about what happened prior to his admission and staff thought it best to bring him on the unit to sort things out. On eval today client is very calm and cooperative. He reports not understanding how he ended up here. He denies having any mental health history. He admits to multiple stressors recently and feeling overwhelmed but denies he is depressed. States he has never felt like he has needed treatment for depression and does not want medication now. He is open to the idea of talking with a counselor given all of his social stressors but he is not interested in remaining inpatient or doing anything more invasive than talk therapy. Client denies any history of suicide attempts. Denies any history of mental health hospitalizations, outpatient treatment, or med trials. He has no AOD issues. He has a son with Gender Identity issues and a sister that attempted suicide after a nasty divorce but he reports she is doing well now. 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 He became concerned with several things he saw in the workplace including staffing ratios and patient falls. When he was unable to fix things with his own supervisors he took his concerns to the state/corporate level. Two weeks later he was fired. He is currently sueing them for retaliation. Client went to work for [employer] in order to bring in some money but he has had two heart attacks since starting there and has been taken by ambulance from work to the ER four times for passing out. [employer] told him he needed to stop working right away in order to qualify for assistance so client recently quit his job at [employer] and now has no real income. He lives with his 28y/o son and he has joint custody of his 16y/o son. Family is supportive, including his ex- . Yesterday client became frustrated with his situation and noticed his blood pressure was high (190s/140s). Client states he cannot afford his BP meds right now so he has not been taking them consistently. He took both his Amlodipine and Metoprolol when he realized his blood pressure was high yesterday. When he rechecked his BP it had not come down so he took the meds again. Ended up taking three rounds of both blood pressure medications. Client then called his ex- who works for [employer] to vent about his situation. Told her he "wanted all this bull shit to end." They argued and he hung up on her. She called him back repeatedly and he kept hanging up on her. She became concerned and called the police. Client states when the police came he was just pulling into his driveway. He went to the ER with them willingly. Blood pressure in ER never showed signs of being too low/indicative of an overdose. However, staff called his ex- and she was concerned enough for client's safety that he was admitted to . Staff also spoke with his son who was not worried about his father's safety and felt comfortable having him come home. However, there were too many conflicting reports to guarantee client's safety so he was admitted. Client reports today he never intended to make his ex- believe he was trying to end his life. He states he did tell her he wanted it to end but that he was referring to his social situation and not his life. He recognizes he probably scared her by repeatedly hanging up the phone on her but that he was angry and did not want to talk. Client adamantly denies he is at risk for self harm. "I have too much to live for." He does not present as outwardly depressed today. He is outgoing and talkative. Full and bright affect. He demonstrates future orientation. He does not want to remain in the hospital and has consistently said he was not attempting suicide since arriving on 1A. He lives with his adult son who is comfortable having him back in the house and will be done with his work shift today to be with client starting at 3pm. Client is agreeable to outpatient follow up with a counselor. Will plan to discharge home. Total time spent with client greater than 30 minutes. Patient was educated of his diagnosis and the risks, benefits, and side effects of this treatment and alternative treatment options and was monitored for responsiveness and side effects. Mood, anxiety, sleep, appetite, and interest improved, as did future orientation. Self-harm thoughts subsided, thinking cleared, psychosis resolved, and mood stabilized. Patient was able to attend both individual and group therapy sessions as well as meeting with the psychiatrist daily and urged to discuss any medication or treatment issues or other concerns. The patient was educated primarily by verbal means about their diagnosis and manifestations in their life. The option for treatment including group and individual therapy programming was offered to the patient in the use of medications with all their potential risks, benefits, and side effects were discussed with the patient at length. The patient was given the opportunity to ask questions and was noted to participate in the treatment in the planning process. The patient felt ready and eager to be discharged from the inpatient psychiatric unit to continue on with treatment as an outpatient. The patient agreed that he is safe for this disposition. The patient was considered to be able to participate in informed consent and decision making with respect to medical, legal, and financial issues of the time of discharge. At the time of discharge the patient adamantly denied any concerns for lethality including suicidal or homicidal thoughts ideations or plans and was future oriented toward ongoing mental health care, medical follow-up and sobriety. - Time Spent with Patient Total time spent providing and/or coordinating discharge services: Greater than 30 minutes Procedures - Procedures Procedures: Medication Management, Crisis Stabilization, Supportive Therapy, Group Therapy Quality - Multiple Antipsychotics Patient discharged on 2 or more antipsychotic medications: No
--- NOTE | 2018-12-21 11:34 | Electrocardiograph Report ---
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
== END 2018-12-20 15:20 | disposition home or self-care (01) | DRG 881 ==
LOC: EMEROOARM 18:39 → 1ANU 12-20 10:12
PROVIDERS: ADMIT Psychiatry & Neurology Psychiatry; ATTEND Psychiatry & Neurology Psychiatry

== ENCOUNTER 2019-05-10 14:50 | Observation (INO) ==
[2019-05-10] MEDS ORDERED: Nitroglycerin 0.4 MG TAB.SUBL SL PRN (15:13)
[2019-05-10] MEDS ORDERED: Aspirin 81 MG TAB.CHEW PO ONE (15:13)
[2019-05-10 15:58] LABS: Basophils # 0.1 K/mcL (0.0-0.2); Basophils % 0.7 %; Eosinophils # 0.1 K/mcL (0.0-0.6); Eosinophils % 1.6 %; Hemoglobin 12.2 g/dL (12.9-16.9); Immature Granulocytes % 0.3 % (0-4); Lymphocytes # 1.8 K/mcL (0.6-4.6); Mean Corpuscular HGB Conc 33.9 g/dL (31.6-35.5); Mean Corpuscular Hemoglobin 28.8 pg (28.0-33.3); Mean Corpuscular Volume 84.9 fL (83.0-100.0); Mean Platelet Volume 9.3 fL (9.4-12.4); Monocytes # 0.5 K/mcL (0.0-1.3); Monocytes % 7.8 %; Neutrophils # 4.3 K/mcL (1.6-8.9); Platelet Count 343 K/mcL (140-400); Red Blood Count 4.24 M/mcL (4.19-5.50); Red Cell Distribution Width 13.9 % (11.5-14.5); Segmented Neutrophils % 63.6 %; White Blood Count 6.8 K/mcL (4.3-11.1)
[2019-05-10 16:08] LABS: Prothrombin Time 11.6 Seconds (9.4-12.1)
[2019-05-10 16:11] LABS: Activated Partial Thrombo Time 32.3 Seconds (26.0-36.0)
[2019-05-10 16:17] LABS: BUN/Creatinine Ratio 14 (6-26); Blood Urea Nitrogen 15 mg/dL (6-20); Calcium 8.6 mg/dL (8.6-10.3); Carbon Dioxide 23 mEq/L (23-29); Chloride 108 mEq/L (98-107); Glucose 112 mg/dL (70-105); Osmolality,Calculated 296 (280-300); Potassium 3.9 mEq/L (3.5-5.1); Sodium 142 mEq/L (136-145); Troponin I < 0.03 ng/mL (< 0.04); eGFR For African Americans > 60 (> 60); eGFR For Non-African Americans > 60 (> 60)
[2019-05-10] MEDS ORDERED: MOM Conc 10 ML UD.LIQ PO PRN (16:46)
[2019-05-10] MEDS ORDERED: Acetaminophen 325 MG TABLET PO PRN (16:46)
[2019-05-10] MEDS ORDERED: Ondansetron 4 MG/2 ML VIAL IVP PRN (16:46)
[2019-05-10] MEDS ORDERED: Naloxone 0.4 MG/ML INJ IVP PRN (16:46)
[2019-05-10] MEDS ORDERED: Mag Hydrox/Al Hydrox/Simeth 30 ML UDC PO PRN (16:46)
[2019-05-10] MEDS ORDERED: *HR* Promethazine 25 MG/ML VIAL IVP PRN (16:46)
[2019-05-10] MEDS: *HR* Heparin 5,000 UNIT/ML VIAL SQ SCH (21:37)
[2019-05-11 04:20] LABS: Basophils # 0.1 K/mcL (0.0-0.2); Eosinophils # 0.2 K/mcL (0.0-0.6); Eosinophils % 2.4 %; Hematocrit 35.5 % (37.5-50.1); Hemoglobin 12.1 g/dL (12.9-16.9); Immature Granulocytes % 0.3 % (0-4); Lymphocytes # 2.2 K/mcL (0.6-4.6); Lymphocytes % 32.7 %; Mean Corpuscular HGB Conc 34.1 g/dL (31.6-35.5); Mean Corpuscular Hemoglobin 28.9 pg (28.0-33.3); Mean Corpuscular Volume 84.9 fL (83.0-100.0); Mean Platelet Volume 9.3 fL (9.4-12.4); Monocytes # 0.5 K/mcL (0.0-1.3); Monocytes % 7.8 %; Neutrophils # 3.7 K/mcL (1.6-8.9); Platelet Count 334 K/mcL (140-400); Red Blood Count 4.18 M/mcL (4.19-5.50); Segmented Neutrophils % 55.8 %; White Blood Count 6.7 K/mcL (4.3-11.1)
[2019-05-11 04:29] LABS: BUN/Creatinine Ratio 14 (6-26); Blood Urea Nitrogen 14 mg/dL (6-20); Calcium 8.2 mg/dL (8.6-10.3); Carbon Dioxide 23 mEq/L (23-29); Chloride 107 mEq/L (98-107); Chol/HDL Ratio 5.4 (0-4.9); Cholesterol 188 mg/dL (< 200); Glucose 109 mg/dL (70-105); HDL Cholesterol 35 mg/dL (40-59); LDL Cholesterol,Calculated 127 mg/dL (0-99); Osmolality,Calculated 291 (280-300); Sodium 140 mEq/L (136-145); Triglycerides 130 mg/dL (< 150); eGFR For African Americans > 60 (> 60); eGFR For Non-African Americans > 60 (> 60)
[2019-05-11] MEDS: *HR* Heparin 5,000 UNIT/ML VIAL SQ SCH ×2 (05:15→18:10)
[2019-05-11] MEDS ORDERED: Regadenoson 0.4 MG/5 ML SYRINGE IVP ONE (06:11)
[2019-05-11] MEDS: Aspirin Enteric Coated 81 MG Tablet PO SCH (13:13)
[2019-05-11] MEDS ORDERED: Isosorbide MONOnitrate (24 HR) 30 MG TAB.ER.24H PO SCH (17:00)
[2019-05-12] MEDS: *HR* Heparin 5,000 UNIT/ML VIAL SQ SCH ×2 (05:47→18:09)
[2019-05-12 10:34] LABS: Hematocrit 36.1 % (37.5-50.1); Hemoglobin 12.5 g/dL (12.9-16.9); Mean Corpuscular HGB Conc 34.6 g/dL (31.6-35.5); Mean Corpuscular Hemoglobin 29.4 pg (28.0-33.3); Mean Corpuscular Volume 84.9 fL (83.0-100.0); Mean Platelet Volume 9.4 fL (9.4-12.4); Platelet Count 346 K/mcL (140-400); Red Blood Count 4.25 M/mcL (4.19-5.50); Red Cell Distribution Width 14.2 % (11.5-14.5); White Blood Count 6.6 K/mcL (4.3-11.1)
[2019-05-12 10:50] LABS: BUN/Creatinine Ratio 26 (6-26); Blood Urea Nitrogen 30 mg/dL (6-20); Calcium 8.6 mg/dL (8.6-10.3); Carbon Dioxide 23 mEq/L (23-29); Chloride 108 mEq/L (98-107); Glucose 115 mg/dL (70-105); Osmolality,Calculated 297 (280-300); Potassium 4.1 mEq/L (3.5-5.1); Sodium 140 mEq/L (136-145); eGFR For African Americans > 60 (> 60); eGFR For Non-African Americans > 60 (> 60)
[2019-05-12] MEDS: Losartan/HCTZ 50-12.5 TABLET PO SCH (10:55)
[2019-05-12] MEDS: Aspirin Enteric Coated 81 MG Tablet PO SCH (10:55)
[2019-05-13] MEDS: *HR* Heparin 5,000 UNIT/ML VIAL SQ SCH (05:13)
[2019-05-13 05:28] LABS: Hematocrit 39.5 % (37.5-50.1); Hemoglobin 13.5 g/dL (12.9-16.9); Mean Corpuscular HGB Conc 34.2 g/dL (31.6-35.5); Mean Corpuscular Hemoglobin 28.9 pg (28.0-33.3); Mean Corpuscular Volume 84.6 fL (83.0-100.0); Mean Platelet Volume 9.5 fL (9.4-12.4); Platelet Count 367 K/mcL (140-400); Red Blood Count 4.67 M/mcL (4.19-5.50); Red Cell Distribution Width 14.2 % (11.5-14.5); White Blood Count 7.3 K/mcL (4.3-11.1)
[2019-05-13 05:55] LABS: BUN/Creatinine Ratio 21 (6-26); Blood Urea Nitrogen 22 mg/dL (6-20); Calcium 8.8 mg/dL (8.6-10.3); Carbon Dioxide 23 mEq/L (23-29); Chloride 105 mEq/L (98-107); Glucose 106 mg/dL (70-105); Osmolality,Calculated 290 (280-300); Sodium 138 mEq/L (136-145); eGFR For African Americans > 60 (> 60); eGFR For Non-African Americans > 60 (> 60)
[2019-05-13 06:50] VITALS: BP 108/73
[2019-05-13] MEDS ORDERED: Regadenoson 0.4 MG/5 ML SYRINGE IVP ONE (07:41)
[2019-05-13] MEDS: Aspirin Enteric Coated 81 MG Tablet PO SCH (13:07)
[2019-05-13] MEDS: Losartan/HCTZ 50-12.5 TABLET PO SCH (13:07)
== END 2019-05-13 16:53 | disposition home or self-care (01) ==
LOC: EMEROOARM 14:50 → 3BNU 14:50
PROVIDERS: ADMIT Internal Medicine; ATTEND Internal Medicine